=== PATIENT | male | born 1975 | race Caucasian/White ===

== ENCOUNTER 2020-08-26 14:51 | Outpatient (REF) | payer BC, SELFPAY ==
[2020-08-26 17:24] LABS: PSA,Total (Free>4and<10) 0.54 ng/mL (0.00-4.00)
[2020-08-30 17:21] LABS: Testosterone, Total 557 ng/dL (250-1100)
== END 2020-08-26 14:52 | disposition home or self-care (01) ==
LOC: HO.HMGCLDS 14:51
PROVIDERS: PCP Internal Medicine; Visit Provider Urology
DX: E29.1 Testicular hypofunction (principal)
CPT/HCPCS: 36415; 84153; 84403

== ENCOUNTER → 2020-11-26 08:59 | Outpatient (BNVA) | payer BC, SELFPAY | PROVIDERS: PCP Internal Medicine; Visit Provider Nurse Practitioner Gerontology | DX: E11.9 Type 2 diabetes mellitus without complications (principal); I10 Essential (primary) hypertension; E78.5 Hyperlipidemia, unspecified; Z79.4 Long term (current) use of insulin | CPT/HCPCS: 82947 ==

== ENCOUNTER → 2020-12-12 13:15 | Outpatient (BNVA) | payer BC, SELFPAY | PROVIDERS: PCP Internal Medicine; Visit Provider Urology ==

== ENCOUNTER → 2020-12-27 08:06 | Outpatient (BNVA) | payer BC, SELFPAY | PROVIDERS: PCP Internal Medicine; Visit Provider Nurse Practitioner Gerontology | DX: E11.9 Type 2 diabetes mellitus without complications (principal); E78.5 Hyperlipidemia, unspecified; I10 Essential (primary) hypertension; Z79.4 Long term (current) use of insulin | CPT/HCPCS: 82947 ==

== ENCOUNTER 2021-01-29 12:17 | Outpatient (REF) | payer BC, SELFPAY ==
[2021-01-29 13:58] LABS: Hematocrit 44.8 % (42-52); Hemoglobin 14.9 g/dl (14.0-18.0); Mean Corpuscular HGB Conc 33.3 g/dl (31.0-36.0); Mean Corpuscular Hemoglobin 30.7 pg (27.0-33.0); Mean Corpuscular Volume 92.4 fL (80-98); Mean Platelet Volume 10.3 fL (9.4-12.4); Platelet Count 226 X10*3/uL (160-400); Red Blood Count 4.85 X10*6/uL (4.60-5.80); Red Cell Distribution Width 13.2 % (11.0-16.0)
[2021-01-29 14:31] LABS: Creatinine Urine 235.06 mg/dL; Microalbum/Creatinine Ratio Ur 6.3 ug/mg cr
[2021-01-29 14:54] LABS: Alanine Aminotransferase 43 U/L (0-40); Albumin Level 4.7 g/dL (3.5-5.0); Alkaline Phosphatase 90 U/L (39-117); Anion Gap 13 (12-20); Aspartate Amino Transferase 23 U/L (5-37); Bilirubin Total 0.8 mg/dL (0.0-1.0); Blood Urea Nitrogen 14 mg/dL (9-16); Calcium 9.7 mg/dL (8.4-10.2); Carbon Dioxide 29 mmol/L (22-29); Chloride 101 mmol/L (96-108); Cholesterol 138 mg/dL; Estimated Glomerular Filt Rate > 60; Glucose Fasting 97 mg/dL (60-99); HDL Cholesterol 47 mg/dL; LDL Cholesterol Calculated 67 mg/dl; Potassium 4.5 mmol/L (3.3-5.1); Sodium 138 mmol/L (135-145); Total Protein 7.1 g/dL (6.5-8.0); Triglycerides 120 mg/dL
[2021-01-29 14:56] LABS: Alanine Aminotransferase 44 U/L (0-40); Anion Gap 15 (12-20); Aspartate Amino Transferase 25 U/L (5-37); Blood Urea Nitrogen 14 mg/dL (9-16); Calcium 9.4 mg/dL (8.4-10.2); Carbon Dioxide 24 mmol/L (22-29); Chloride 103 mmol/L (96-108); Cholesterol 134 mg/dL; Estimated Glomerular Filt Rate > 60; Glucose Fasting 99 mg/dL (60-99); HDL Cholesterol 45 mg/dL; LDL Cholesterol Calculated 65 mg/dl; Potassium 4.8 mmol/L (3.3-5.1); Sodium 137 mmol/L (135-145); Triglycerides 120 mg/dL
[2021-01-29 15:38] LABS: Prostate Specific Antigen 0.52 ng/mL (<0.05-4.0)
[2021-01-31 06:37] LABS: LDL Cholesterol Direct 69 mg/dL (<100)
[2021-02-02 12:05] LABS: Testosterone, Total 712 ng/dL (250-1100)
== END 2021-01-29 12:18 | disposition home or self-care (01) ==
LOC: HO.HMGCLDS 12:17
PROVIDERS: Urology; Absent Provider Nurse Practitioner Gerontology; PCP Internal Medicine; Visit Provider Internal Medicine
DX: Z00.01 Encounter for general adult medical examination with abnormal findings (principal); Z12.5 Encounter for screening for malignant neoplasm of prostate; E29.1 Testicular hypofunction; E11.9 Type 2 diabetes mellitus without complications; I10 Essential (primary) hypertension; Z79.4 Long term (current) use of insulin
CPT/HCPCS: 36415; 80048; 80053; 80061; 82043; 83721; 84153; 84403; 84450; 84460; 85027

== ENCOUNTER → 2021-05-09 08:01 | Outpatient (BNVA) | payer BC, SELFPAY | PROVIDERS: PCP Internal Medicine; Visit Provider Nurse Practitioner Gerontology | DX: E11.9 Type 2 diabetes mellitus without complications (principal); E78.5 Hyperlipidemia, unspecified; I10 Essential (primary) hypertension; Z79.4 Long term (current) use of insulin | CPT/HCPCS: 82947; 83036 ==

== ENCOUNTER 2021-06-12 10:56 | Outpatient (REF) | payer BC, SELFPAY | END 2021-06-12 10:57 | disposition home or self-care (01) | LOC: HO.LAB 10:56 | PROVIDERS: PCP Internal Medicine; Visit Provider Urology | DX: E29.1 Testicular hypofunction (principal); Z12.5 Encounter for screening for malignant neoplasm of prostate | CPT/HCPCS: 36415; 84153 ==

== ENCOUNTER → 2021-07-11 11:18 | Outpatient (BNVA) | payer BC, SELFPAY | PROVIDERS: PCP Internal Medicine; Visit Provider Urology ==

== ENCOUNTER → 2021-08-15 08:14 | Outpatient (BNVA) | payer BC, SELFPAY | PROVIDERS: PCP Internal Medicine; Visit Provider Nurse Practitioner Gerontology | DX: E11.9 Type 2 diabetes mellitus without complications (principal); I10 Essential (primary) hypertension; Z79.4 Long term (current) use of insulin | CPT/HCPCS: 82947; 83036 ==

== ENCOUNTER 2021-09-03 07:06 | Outpatient (REF) | payer BC, SELFPAY ==
[2021-09-03 12:14] LABS: Creatinine Urine 130.45 mg/dL; Microalbum/Creatinine Ratio Ur 6.1 ug/mg cr
[2021-09-03 12:34] LABS: Alanine Aminotransferase 19 U/L (0-40); Albumin Level 4.4 g/dL (3.5-5.0); Alkaline Phosphatase 94 U/L (39-117); Anion Gap 11 (12-20); Aspartate Amino Transferase 15 U/L (5-37); Bilirubin Total 0.9 mg/dL (0.0-1.0); Blood Urea Nitrogen 13 mg/dL (9-16); Calcium 9.7 mg/dL (8.4-10.2); Carbon Dioxide 30 mmol/L (22-29); Chloride 102 mmol/L (96-108); Cholesterol 128 mg/dL; Estimated Glomerular Filt Rate > 60; Glucose Fasting 123 mg/dL (60-99); HDL Cholesterol 40 mg/dL; LDL Cholesterol Calculated 73 mg/dl; Potassium 4.3 mmol/L (3.3-5.1); Sodium 139 mmol/L (135-145); Total Protein 6.6 g/dL (6.5-8.0); Triglycerides 75 mg/dL
[2021-09-04 08:02] LABS: C Peptide 0.48 ng/mL (0.80-3.85)
[2021-09-04 08:26] LABS: LDL Cholesterol Direct 72 mg/dL (<100)
[2021-09-07 20:42] LABS: Glutamic acid decarboxylase Ab >250 IU/mL (<5)
[2021-09-16 17:58] LABS: Islet Cell Antibody Screen NEGATIVE (NEGATIVE)
== END 2021-09-03 07:07 | disposition home or self-care (01) ==
LOC: HO.HMGCLDS 07:06
PROVIDERS: PCP Internal Medicine; Visit Provider Nurse Practitioner Gerontology
DX: E11.9 Type 2 diabetes mellitus without complications (principal); Z79.4 Long term (current) use of insulin
CPT/HCPCS: 36415; 80053; 80061; 82043; 83721; 84681; 86255; 86341

== ENCOUNTER 2021-12-17 14:27 | Outpatient (REF) | payer BC, SELFPAY ==
--- NOTE | ~2021-12-17 | XR_ITS ---
EXAMINATION: XR HAND, LEFT CLINICAL INFORMATION: Contusion COMPARISON: None TECHNIQUE: Three views of the left hand. FINDINGS: Bone alignment is normal. No acute fracture or dislocation is seen. There is a screw seen in the scaphoid bone and old healed fracture. There is maybe an old ununited ulnar styloid fracture versus accessory ossification center. Joint spaces are normal. Soft tissues are normal. XR/XR hand LT min 3V IMPRESSION: No acute fracture or dislocation.
== END 2021-12-17 14:28 | disposition home or self-care (01) ==
LOC: HO.HMGCX 14:27
PROVIDERS: PCP Internal Medicine; Visit Provider Internal Medicine
DX: S60.222A Contusion of left hand, initial encounter (principal); X58.XXXA Exposure to other specified factors, initial encounter; Y93.9 Activity, unspecified; Y92.9 Unspecified place or not applicable; Y99.8 Other external cause status
CPT/HCPCS: 73130

== ENCOUNTER 2021-12-26 07:08 | Outpatient (REF) | payer BC, SELFPAY ==
[2021-12-26 11:48] LABS: Hematocrit 41.3 % (42.0-52.0); Hemoglobin 13.5 g/dl (14.0-18.0); Mean Corpuscular HGB Conc 32.7 g/dl (31.0-36.0); Mean Corpuscular Hemoglobin 30.4 pg (27.0-33.0); Mean Platelet Volume 10.5 fL (9.4-12.4); Platelet Count 193 X10*3/uL (160-400); Red Blood Count 4.44 X10*6/uL (4.60-5.80); Red Cell Distribution Width 13.4 % (11.0-16.0); White Blood Count 5.2 X10*3/uL (4.8-10.8)
[2021-12-26 12:25] LABS: Prostate Specific Antigen 0.49 ng/mL (<0.05-4.0)
[2022-01-01 14:36] LABS: Testosterone, Total 666 ng/dL (250-1100)
== END 2021-12-26 07:09 | disposition home or self-care (01) ==
LOC: HO.HMGCLDS 07:08
PROVIDERS: PCP Internal Medicine; Visit Provider Urology
DX: Z12.5 Encounter for screening for malignant neoplasm of prostate (principal); E29.1 Testicular hypofunction
CPT/HCPCS: 36415; 84153; 84403; 85027

== ENCOUNTER 2022-06-25 07:06 | Outpatient (REF) | payer BC, SELFPAY ==
[2022-06-25 11:22] LABS: Hematocrit 43.4 % (42.0-52.0)
[2022-06-25 11:52] LABS: Alanine Aminotransferase 44 U/L (0-40); Anion Gap 13 (12-20); Aspartate Amino Transferase 26 U/L (5-37); Blood Urea Nitrogen 15 mg/dL (9-16); Calcium 9.6 mg/dL (8.4-10.2); Carbon Dioxide 32 mmol/L (22-29); Chloride 99 mmol/L (96-108); Cholesterol 185 mg/dL; Estimated Glomerular Filt Rate > 60; Glucose Fasting 139 mg/dL (60-99); HDL Cholesterol 45 mg/dL; LDL Cholesterol Calculated 79 mg/dl; Potassium 3.8 mmol/L (3.3-5.1); Sodium 140 mmol/L (135-145); Triglycerides 305 mg/dL
[2022-06-25 12:07] LABS: Prostate Specific Antigen 0.61 ng/mL (<0.05-4.0); Vitamin D 25-OH Total 5.8 ng/mL (>30)
[2022-07-02 13:34] LABS: Testosterone, Total 599 ng/dL (250-1100)
== END 2022-06-25 07:07 | disposition home or self-care (01) ==
LOC: HO.HMGCLDS 07:06
PROVIDERS: Absent Provider Urology; PCP Internal Medicine; Referring Provider Internal Medicine; Visit Provider Internal Medicine
DX: E10.9 Type 1 diabetes mellitus without complications (principal); E78.5 Hyperlipidemia, unspecified; E29.1 Testicular hypofunction; I10 Essential (primary) hypertension; Z12.5 Encounter for screening for malignant neoplasm of prostate
CPT/HCPCS: 36415; 80048; 80061; 82306; 84153; 84403; 84450; 84460; 85014

== ENCOUNTER → 2022-07-10 13:54 | Outpatient (BNVA) | payer BC, SELFPAY | PROVIDERS: PCP Internal Medicine; Visit Provider Urology | DX: Z13.89 Encounter for screening for other disorder (principal) ==

== ENCOUNTER 2022-07-14 07:07 | Outpatient (REF) | payer BC, SELFPAY ==
[2022-07-14 12:12] LABS: Estimated Average Glucose 131 mg/dL; Hemoglobin A1c % 6.2 %
== END 2022-07-14 07:08 | disposition home or self-care (01) ==
LOC: HO.HMGCLDS 07:07
PROVIDERS: PCP Internal Medicine; Visit Provider Internal Medicine Endocrinology, Diabetes & Metabolism
DX: E10.9 Type 1 diabetes mellitus without complications (principal)
CPT/HCPCS: 36415; 83036

== ENCOUNTER → 2022-07-15 14:47 | Outpatient (BNVA) | payer BC, SELFPAY | PROVIDERS: PCP Internal Medicine; Visit Provider Internal Medicine Endocrinology, Diabetes & Metabolism | DX: E10.9 Type 1 diabetes mellitus without complications (principal); Z79.4 Long term (current) use of insulin | CPT/HCPCS: 82947 ==

== ENCOUNTER → 2022-10-06 13:51 | Outpatient (BNVA) | payer BC, SELFPAY | PROVIDERS: PCP Internal Medicine; Visit Provider Urology | DX: Z13.89 Encounter for screening for other disorder (principal) ==

== ENCOUNTER → 2022-10-21 09:29 | Outpatient (BNVA) | payer BC, SELFPAY | PROVIDERS: PCP Internal Medicine; Visit Provider Registered Nurse Diabetes Educator ==

== ENCOUNTER → 2022-12-02 12:32 | Outpatient (BNVA) | payer BC, SELFPAY | PROVIDERS: PCP Internal Medicine; Visit Provider Registered Nurse Diabetes Educator ==

== ENCOUNTER 2023-01-21 07:29 | Outpatient (REF) | payer BC, SELFPAY ==
[2023-01-21 11:32] LABS: Hematocrit 39.6 % (42.0-52.0); Mean Corpuscular HGB Conc 32.8 g/dl (31.0-36.0); Mean Corpuscular Hemoglobin 31.7 pg (27.0-33.0); Mean Corpuscular Volume 96.6 fL (80.0-98.0); Mean Platelet Volume 10.5 fL (9.4-12.4); Platelet Count 196 X10*3/uL (160-400); Red Cell Distribution Width 13.9 % (11.0-16.0); White Blood Count 5.1 X10*3/uL (4.8-10.8)
[2023-01-21 12:05] LABS: Prostate Specific Antigen 0.57 ng/mL (<0.05-4.0)
[2023-01-25 22:24] LABS: Testosterone, Total 704 ng/dL (250-1100)
== END 2023-01-21 07:30 | disposition home or self-care (01) ==
LOC: HO.HMGCLDS 07:29
PROVIDERS: PCP Internal Medicine; Visit Provider Urology
DX: Z12.5 Encounter for screening for malignant neoplasm of prostate (principal); E29.1 Testicular hypofunction
CPT/HCPCS: 36415; 84153; 84403; 85027

== ENCOUNTER 2023-02-03 08:58 | Outpatient (AMB) | payer BC, SELFPAY ==
--- NOTE | 2023-02-03 09:15 | MHC.OFFVIS ---
Intake Intake Visit Reasons: 6M PSA/CBC/Testo(set) Intake Note: Patient is present for Follow Up LABS Urology Med: Tadalafil, Testosterone Antibiotic Allergy: None Blood Thinner: None Pharmacy: [facility] Allergies No Known Allergies [No Known Allergies*] Allergy (Verified 02/03/23 09:44) HPI HPI Comments History of Present Illness Details Jacek is a pleasant male.? He is a patient of Dr. Dyer.? He is seen for the following urologic conditions - hypogonadism - lower urinary tract symptoms - erectile dysfunction Stable testosterone levels - T 704 Continue with current therapy Refill provided Jacek has had issues with insurance coverage for testosterone He has been on testosterone since soon after his diabetes diagnosis in 2017 The original diagnostic laboratories are no longer available His symptoms of lack of energy, decreased muscle mass and decreased libido all respond to testosterone therapy It will be expected that he will remain on testosterone for the foreseeable future Good response to low-dose daily tadalafil for erectile issues Hypogonadism Longstanding - naltrexone use Treated with AndroGel - 4 pumps per day Laboratories - 01/25 T 712, 12/26 T 650 P 0.5, 06/29 T 600 P 0.6 H 43, 01/27 T 700 P 0.6 Comorbidities include Type 1 diabetes with insulin use, dyslipidemia Therapeutic plan - continue to follow with labs every 6 months Erectile dysfunction Low-dose tadalafil daily with good response Lower urinary tract symptoms Weakness of stream Had been placed on Flomax? [facility] Medical History Dyslipidemia History of cholelithiasis History of kidney stones History of opioid abuse HTN (hypertension) Type 1 diabetes Vitamin D deficiency Surgical History History of laparoscopic cholecystectomy History of surgery on wrist Family History Father Coronary artery disease Son Type 1 diabetes Mother No problems noted. Social History Household Members: Spouse and Children Housing: House Alcohol intake: former Patient Tobacco Use Status: Former Tobacco user e-Cigarette/Vaping Use: Never Used Substance Use Type: Marijuana Current occupational status: employed Cognitive needs: No Hearing needs: No Vision needs: Yes Review of Systems Const Denies chills and Denies fever(s) Card Reports no additional complaints and Denies syncope Resp Denies cough GI Denies abdominal pain and Denies heartburn Reports as per HPI and Denies change in libido Neuro Denies syncope Psych Denies change in libido Endo Denies change in libido Physical Exam Const General: cooperative, healthy appearing, comfortable and no acute distress Orientation/consciousness: patient oriented x3 HEENT Face and sinus: Yes normal facial exam Mouth: moist mucous membranes Neck Neck: Yes normal visual inspection, Yes full ROM and Yes trachea midline Chest Chest palpation & inspection: normal inspection of the chest Resp Effort & Inspection: normal respiratory effort, able to speak in complete sentences and no respiratory distress GI Inspection: Yes normal to inspection Back/Spine/Pelvis Cervical Spine: normal cervical lordosis Thoracic/Lumbar Spine: thoracic and lumbar spine normal to inspection Skin General skin exam: no rashes or lesions noted Neuro General: patient oriented x3, gait normal, tone normal and moves all extremities Extrem General: Yes normal to inspection and Yes capillary refill normal Assessment & Plan Assessment & Plan (1) Erectile dysfunction due to diabetes mellitus: Code(s): E11.69 - Type 2 diabetes mellitus with other specified complication; N52.1 - Erectile dysfunction due to diseases classified elsewhere (2) Hypogonadism in male: Code(s): E29.1 - Testicular hypofunction Plan Six month follow-up Orders: Orders Prostate Specific Antigen 6 Months E29.1 - Testicular hypofunction Testosterone, Total 6 Months E29.1 - Testicular hypofunction Complete Blood Count no Diff 6 Months E29.1 - Testicular hypofunction Patient Instructions: Imaging studies, laboratory and physical exam results were discussed and reviewed in detail. No major barriers to patient understanding were identified. An opportunity to ask questions regarding the treatment plan was provided. All questions were answered. The patient expressed understanding and agreement with the above treatment plan. The patient is aware they should contact our office by phone for worsening of their current condition or the appearance of new urologic symptoms. Compliance is encouraged with any medications and followup testing that is ordered. It is a privilege to participate in the urologic care of your patient. If you have any questions or concerns regarding treatment for the above conditions, or other urologic issues, please do not hesitate to contact me. The office telephone contact is [phone]. This note is constructed using voice recognition software. While every effort has been made to ensure accuracy hearings reporter errors may have been included. Yours sincerely, Dr Hilton Mattson MD, [facility] - Urology Providers of Expert, Compassionate Care for the Genitourinary System Coding Level of Care Code Est Pt Level 3 (29443) Diagnoses Erectile dysfunction due to diabetes mellitus E11.69; N52.1 Hypogonadism in male E29.1
== END 2023-02-03 10:06 | disposition home or self-care (01) ==
PROVIDERS: PCP Internal Medicine; Visit Provider Urology
DX: E11.69 Type 2 diabetes mellitus with other specified complication (principal); N52.1 Erectile dysfunction due to diseases classified elsewhere; E29.1 Testicular hypofunction
CPT/HCPCS: 99213

== ENCOUNTER → 2023-02-03 08:58 | Outpatient (BNVA) | payer BC, SELFPAY | PROVIDERS: Visit Provider Urology ==

== ENCOUNTER 2023-07-09 11:46 | Outpatient (AMB) | payer BC, SELFPAY ==
--- NOTE | 2023-07-09 11:50 | MHC.PC.OV ---
Vital Signs 07/09/23 11:55 Height 5 ft 9 in Weight 192 lb BMI 28.4 BP 140/70 H Blood Pressure Location Lt brachial Position Sitting Pulse 93 Pulse Source Pulse Oximeter Pulse Oximetry (%) 97 Oxygen Delivery Method Room Air Intake Visit Reasons: Follow up also out of multiple prescriptions Intake Note: Pt is here today need refills on some rx's: also Rt hand pain ?carpal tunnel Allergies No Known Allergies [No Known Allergies*] Allergy (Verified 07/09/23 12:00) Medication List - Last Reconciled 07/09/23 by Kyara Dyer MD atorvastatin 20 mg PO DAILY blood sugar diagnostic (AethonTouch Verio test strips) Three times a day blood-glucose meter (AethonTouch Verio Meter) 3x/day blood-glucose meter,continuous (DexMettl G6 Mimeograph Operator) check blood sugar TID ac blood-glucose sensor (ZeroFOX G6 Sensor device) As directed blood-glucose transmitter (Dexcom G6 Transmitter device) As directed buprenorphine-naloxone 8-2 mg 20 mg sublingual DAILY glucagon 3 mg/actuation (Baqsimi) 3 mg intranasal ONCE insulin glargine (Lantus Solostar U-100 Insulin) 40 units (0.4 mL) subcut BID insulin lispro (Humalog KwikPen (U-100) Insulin) 18-20 units before meals subcutaneously 3 times a day; subcutaneously 3 times a day; insulin lispro (Humalog U-100 Insulin) 7 units (0.07 mL) subcut TID insulin pump cart,auto,BT-cntr (Omnipod 5 G6 Intro Kit (Gen 5) subcutaneous cartridge with controller) As directed change pod every 72 hours insulin pump cart,automated,BT (Omnipod 5 G6 Pods (Gen 5) subcutaneous cartridge) As directed change pot every 72 hours lisinopril 20 mg PO DAILY pen needle, diabetic (Comfort EZ Pen Woodruff) 4x daily tadalafil 5 mg PO DAILY 90 days testosterone 4 pumps transdermal DAILY 28 days Tobacco use date assessed: 07/09/23 Dental Screening Dental Screen Date: 07/09/23 Did you have a dental visit in the last 12 months?: Yes Was dental information given to patient?: Patient has dentist HPI Follow up also out of multiple prescriptions HPI Details 47-year-old male with type 1 diabetes mellitus currently followed by endocrine clinic, has hypogonadism currently being followed by Urology, here today for follow-up on his hypertension hyperlipidemia. States that he ran out of his medications several weeks ago. Denies any complaints of headache, chest pain, shortness of breath or lightheadedness. He however complains of pain and swelling over thenar eminence of right hand, with difficulty making a fist or grasping things with his right hand. This has been present now for the last several days and not much relief afforded with taking Tylenol or ibuprofen. No history of trauma or strenuous exertion or heavy lifting with right hand. [facility] Medical History (Updated 07/09/23 @ 12:11 by Kyara Dyer MD) Right hand tendonitis Vitamin D deficiency Type 1 diabetes HTN (hypertension) History of opioid abuse History of kidney stones History of cholelithiasis Dyslipidemia Surgical History History of surgery on wrist History of laparoscopic cholecystectomy Family History Father Coronary artery disease Son Type 1 diabetes Mother No problems noted. Social History Household Members: Spouse and Children Housing: House Alcohol intake: former Patient Tobacco Use Status: Former Tobacco user e-Cigarette/Vaping Use: Never Used Substance Use Type: Marijuana Current occupational status: employed Cognitive needs: No Hearing needs: No Vision needs: Yes Questionnaire PHQ-9 Over the last 2 weeks, how often have you been bothered by any of the following problems? 1. Little interest or pleasure in doing things: not at all 2. Feeling down, depressed, or hopeless: not at all 3. Trouble falling or staying asleep, or sleeping too much: not at all 4. Feeling tired or having little energy: not at all 5. Poor appetite or overeating: not at all 6. Feeling bad about yourself - or that you are a failure or have let yourself or your family down: not at all 7. Trouble concentrating on things, such as reading the newspaper or watching television: not at all 8. Moving or speaking so slowly that other people could have noticed. Or the opposite - being so fidgety or restless that you have been moving around a lot more than usual: not at all 9. Thoughts that you would be better off or of hurting yourself in some way: not at all Total score: 0 Depression Screening Interpretation: Negative Depression Screening Done: Yes 72109 - PHQ-9 Billing: Yes Source: Developed by Drs. Nasim Pardo, Apryl Burks, Juan Antonio Daniel and colleagues, with an educational marshall from [facility]. Thrive Questionnaire Date Thrive assessed: 07/09/23 I am a: Patient What is your living situation today?: I have a steady place to live Within the past 12 months, did the food you bought not last and you didn't have the money to get more?: Never true Within the past 12 months, did you worry whether your food would run out before you got money to buy more?: Never true Do you have trouble paying for medicines?: No Do you have trouble getting transportation to medical appointments?: No Do you have trouble paying your heating and electricity bill?: No Do you have trouble taking care of your child, family member or friend?: No Do you have trouble with day-to-day activities such as bathing, preparing meals, shopping, managing finances, etc.?: No Are you currently unemployed and looking for a job?: No Are you interested in more education?: No THRIVE Score: 0 AUDIT C Alcohol Use Questionnaire (AUDIT-C) 1. How often do you have a drink containing alcohol?: Never Total Score: 0 REYNA-7 AMB Questionnaire REYNA-7 Date REYNA - 7 assessed: 07/09/23 Feeling nervous, anxious, or on edge: 0 = Not at all Not being able to stop or control worryin = Not at all Worrying too much about different things: 0 = Not at all Trouble relaxin = Not at all Being so restless that it is hard to sit still: 0 = Not at all Becoming easily annoyed or irritable: 0 = Not at all Feeling afraid as if something awful might happen: 0 = Not at all Total REYNA-7 score (0-4 normal; 5-9 mild; 10-14 moderate; 15-21 severe): 0 Source: Developed by Drs. Nasim Pardo, Apryl Burks, Juan Antonio Daniel and colleagues, with an educational marshall from [facility]. REYNA-7 Assessment Billing REYNA-7 Assessment Tool: REYNA-7 Assessment 89036 Review of Systems Const Denies body aches, Denies fatigue, Denies fever(s), Denies headache(s) and Denies weakness Eyes Denies change in vision ENT Reports Normal hearing present, Denies dizziness, Denies headache(s), Denies nasal congestion, Denies nasal discharge and Denies sore throat Card Denies chest pain, Denies lightheadedness, Denies palpitations and Denies dyspnea Resp Denies cough and Denies dyspnea GI Denies abdominal pain, Denies change in bowel habits and Denies heartburn Denies dysuria, Denies urinary frequency and Denies urinary urgency Musc Denies back pain Skin/Breast Denies lesions and Denies rash Neuro Reports Normal hearing present, Denies Abnormal speech present, Denies dizziness, Denies headache(s) and Denies weakness Endo Denies fatigue, Denies polydipsia, Denies polyuria and Denies palpitations Physical exam (Primary Care) Vital Signs: Last Vital Signs Pulse 93 07/09/23 11:55 BP 140/70 H 07/09/23 11:55 Pulse Ox 97 07/09/23 11:55 Oxygen Delivery Method Room Air 07/09/23 11:55 BMI result Body Mass Index 28.4 Tobacco/Smoking Status: Tobacco use Status Tobacco use date assessed 07/09/23 07/09/23 11:57 Patient Tobacco Use Status Former Tobacco user 07/09/23 11:57 e-Cigarette/Vaping Use Never Used 07/09/23 11:57 PHQ-9: PHQ-9 Score PHQ-9: Total score 0 07/11/23 22:26 Depression Screening Interpretation: Negative Thrive Assessment: Date of Thrive Assessment Date Thrive assessed 07/09/23 07/09/23 11:59 Const Other: Alert and oriented x3, no acute cardiorespiratory distress noted ambulatory with normal gait HENMT Head: Yes normocephalic Ears: external ears normal General nose exam: Normal external nose present Eyes General: appearance normal, both eyes and all related structures Neck Neck: Yes full ROM, Yes no lymphadenopathy, Yes no meningeal signs and Yes supple Thyroid: Thyroid normal Resp Auscultation: clear to auscultation bilaterally Cardio Other: S1-S2 present regular rate and rhythm GI Palpation (GI): Soft to palpation, nontender, no guarding and no masses General: Yes no CVA tenderness Back/Spine/Pelvis Back: no CVA tenderness and No back tenderness Skin General skin exam: no rashes or lesions noted Neuro General: gait normal, tone normal, moves all extremities, Normal light touch and pain sensation, no meningeal signs, no focal motor deficits and CN's II-XI intact bilaterally Cranial nerves: Yes Normal hearing present Speech: No Abnormal speech present Extrem Other: Mild swelling and redness over thenar eminence on right, tender to palpation, unable to make a tight fist due to pain General: Yes full ROM, Yes normal exam except as noted, Yes no joint enlargement, Yes no clubbing, cyanosis or edema and Yes normal gait Psych Appearance: grossly normal Mental Status: mental status grossly normal Speech and movement: Normal speech and movement present Attitude: cooperative Assessment and Plan Assessment & Plan (1) HTN (hypertension): Code(s): I10 - Essential (primary) hypertension Qualifiers: Hypertension type: essential hypertension Qualified Code(s): I10 - Essential (primary) hypertension Plan: Blood pressure goal is less than 130/80. Advised better compliant to taking medication, continued on lisinopril 20 mg daily. Reinforced importance of following a low sodium diet, getting regular exercise, and lowering stress levels. (2) Dyslipidemia: Code(s): E78.5 - Hyperlipidemia, unspecified Plan: Continue atorvastatin 20 mg daily, get fasting labs done (3) Right hand tendonitis: Code(s): M77.8 - Other enthesopathies, not elsewhere classified Plan: Prescription sent for prednisone tapering dose, to take as directed. Advised to take it with milk or food, return to clinic if no improvement of symptoms seen Medications: New prednisone see taper instructions take 40 mg for on days 1 and 2, 30 mg on days 3 and 4, 20 mg on days 5 and 6, and 1 tablet or 10 mg on days 7 and 8. Take it with food or milk 10 mg PO DIRECTED 20 tabs 0RF Refilled atorvastatin Schedule next PCP visit for future refills 20 mg PO DAILY 90 tabs 1RF Coding Level of Care Code Est Pt Level 4 (19276) Diagnoses Essential hypertension I10 Hypertension type: essential hypertension Dyslipidemia E78.5 Right hand tendonitis M77.8 Additional Codes REYNA-7 Assessment Billing - REYNA-7 Assessment Tool: REYNA-7 Assessment 85282 ([id number])
[2023-07-09 11:55] VITALS: BP 140/70; PULSE 93; O2SAT 97; BMI 28.4
== END 2023-07-09 12:30 | disposition home or self-care (01) ==
PROVIDERS: PCP Internal Medicine; Visit Provider Internal Medicine
DX: I10 Essential (primary) hypertension (principal); E78.5 Hyperlipidemia, unspecified; M77.8 Other enthesopathies, not elsewhere classified
CPT/HCPCS: 99214

== ENCOUNTER 2023-07-10 10:03 | Outpatient (REF) | payer BC, SELFPAY ==
[2023-07-10 11:56] LABS: Hematocrit 40.4 % (42.0-52.0); Hemoglobin 13.7 g/dl (14.0-18.0); Mean Corpuscular HGB Conc 33.9 g/dl (31.0-36.0); Mean Corpuscular Hemoglobin 31.7 pg (27.0-33.0); Mean Corpuscular Volume 93.5 fL (80.0-98.0); Mean Platelet Volume 10.2 fL (9.4-12.4); Platelet Count 236 X10*3/uL (160-400); Red Blood Count 4.32 X10*6/uL (4.60-5.80); Red Cell Distribution Width 12.7 % (11.0-16.0); White Blood Count 8.3 X10*3/uL (4.8-10.8)
[2023-07-10 12:27] LABS: Alanine Aminotransferase 52 U/L (0-40); Anion Gap 17 (12-20); Aspartate Amino Transferase 28 U/L (5-37); Blood Urea Nitrogen 14 mg/dL (9-16); Calcium 9.5 mg/dL (8.4-10.2); Carbon Dioxide 25 mmol/L (22-29); Chloride 102 mmol/L (96-108); Cholesterol 190 mg/dL (<200); Estimated Glomerular Filt Rate > 60; Glucose Fasting 151 mg/dL (60-99); HDL Cholesterol 69 mg/dL (>40); LDL Cholesterol Calculated 53 mg/dL (<100); Potassium 3.8 mmol/L (3.3-5.1); Sodium 140 mmol/L (135-145); Triglycerides 343 mg/dL (<150)
[2023-07-10 12:33] LABS: Microalbum/Creatinine Ratio Ur 19.3 ug/mg cr (<30)
[2023-07-10 12:46] LABS: Prostate Specific Antigen 0.52 ng/mL (<0.05-4.0)
[2023-07-14 22:58] LABS: Testosterone, Total 864 ng/dL (250-1100)
== END 2023-07-10 10:04 | disposition home or self-care (01) ==
LOC: HO.HMGCLDS 10:03
PROVIDERS: PCP Internal Medicine; Referring Provider Urology; Visit Provider Internal Medicine
DX: Z12.5 Encounter for screening for malignant neoplasm of prostate (principal); E29.1 Testicular hypofunction; E10.9 Type 1 diabetes mellitus without complications; I10 Essential (primary) hypertension
CPT/HCPCS: 36415; 80048; 80061; 82043; 82570; 84153; 84403; 84450; 84460; 85027

== ENCOUNTER 2023-07-27 10:26 | Outpatient (AMB) | payer BC, SELFPAY ==
[2023-07-27 10:31] VITALS: BP 122/70; PULSE 86; TEMP 36.2; O2SAT 96; BMI 27.2
--- NOTE | 2023-07-27 10:31 | MHC.OFFWIV ---
Intake Vital Signs 07/27/23 10:31 Height 5 ft 9 in Weight 184 lb BMI 27.2 BP 122/70 Blood Pressure Location Lt brachial Position Sitting Pulse 86 Pulse Source Pulse Oximeter Temp 97.2 F Temp Source Temporal Artery Scan Pulse Oximetry (%) 96 Oxygen Delivery Method Room Air Intake Visit Reasons: EP fever, congestion, [phone] Intake Note: pt is here today for fever congestion cough started yesterday Patient Tobacco Use Status: Former Tobacco user Allergies No Known Allergies [No Known Allergies*] Allergy (Verified 07/27/23 11:18) Medication List - Last Reconciled 07/27/23 by Otto Meza, MEDICAL HEALTH RESEARCHER albuterol sulfate 90 mcg/actuation 2 puffs inhalation Q6H PRN atorvastatin 20 mg PO DAILY benzonatate 100 mg PO BID PRN blood sugar diagnostic (Liquid Xuch Verio test strips) Three times a day blood-glucose meter (Liquid Xuch Verio Meter) 3x/day blood-glucose meter,continuous ([employer] Consumer G6 Search Engine Optimization Strategist) check blood sugar TID ac blood-glucose sensor ([employer] Consumer G6 Sensor device) As directed blood-glucose transmitter ([employer] Consumer G6 Transmitter device) As directed buprenorphine-naloxone 8-2 mg 20 mg sublingual DAILY glucagon 3 mg/actuation (Baqsimi) 3 mg intranasal ONCE insulin glargine (Lantus Solostar U-100 Insulin) 40 units (0.4 mL) subcut BID insulin lispro (Humalog KwikPen (U-100) Insulin) 18-20 units before meals subcutaneously 3 times a day; subcutaneously 3 times a day; insulin lispro (Humalog U-100 Insulin) 7 units (0.07 mL) subcut TID insulin pump cart,auto,BT-cntr (Omnipod 5 G6 Intro Kit (Gen 5) subcutaneous cartridge with controller) As directed change pod every 72 hours insulin pump cart,automated,BT (Omnipod 5 G6 Pods (Gen 5) subcutaneous cartridge) As directed change pot every 72 hours lisinopril 20 mg PO DAILY pen needle, diabetic (Comfort EZ Pen Hindman) 4x daily prednisone 40 mg (2 x 20 mg) PO DAILY tadalafil 5 mg PO DAILY 90 days testosterone 4 pumps transdermal DAILY 28 days Do you need a note to return to daycare/school/sports/work: Yes HPI HPI Comments History of Present Illness Details Patient is a 47-year-old male in today for a sick visit. Patient states that the past 2 days he has developed symptoms of sore throat, cough, headache, fever, chest tightness. He has a past medical history significant for type 1 diabetes, reactive airways, hypertension. Patient denies chest pain, dizziness, numbness, shortness of breath, nausea, vomiting, diarrhea. [facility] Medical History (Updated 07/27/23 @ 11:21 by JUAN A Ackerman) Right hand tendonitis Vitamin D deficiency Type 1 diabetes HTN (hypertension) History of opioid abuse History of kidney stones History of cholelithiasis Dyslipidemia Surgical History History of surgery on wrist History of laparoscopic cholecystectomy Family History Father Coronary artery disease Son Type 1 diabetes Mother No problems noted. Social History Household Members: Spouse and Children Housing: House Alcohol intake: former Patient Tobacco Use Status: Former Tobacco user e-Cigarette/Vaping Use: Never Used Substance Use Type: Marijuana Current occupational status: employed Cognitive needs: No Hearing needs: No Vision needs: Yes Review of Systems Const Details: Constitutional : No Weight loss, No Fever, Admits Chills, No Fatigue, Admits Malaise ENT/Mouth : Admits sore throat, No Rhinorrhea Eyes: No Eye Pain, No Swelling, No Redness Cardiovascular : No Chest Pain, No SOB, No Dyspnea on Exertion, No Orthopnea, No Edema, No Palpitations Respiratory : Admits Cough, Admits Sputum, Admits Wheezing Gastrointestinal : No Nausea, No Vomiting, No Diarrhea, No Constipation, No abdominal Pain, No Hematochezia, No Melena Neuro : No Weakness, No Numbness, No Dizziness, No Headache All other systems reviewed and are negative Physical Exam Vital Signs: Last Vital Signs Temp 97.2 F 07/27/23 10:31 Pulse 86 07/27/23 10:31 BP 122/70 07/27/23 10:31 Pulse Ox 96 07/27/23 10:31 Oxygen Delivery Method Room Air 07/27/23 10:31 BMI result Body Mass Index 27.2 Const Other: Appearance: Alert.? Oriented X3.? No acute distress.? Head: Normocephalic, atraumatic, Eyes: Pupils equal, round and reactive to light.?No photophobia. Red reflex present. ENT: Pharynx erythema and cobblestone. No exudate. TM intact with effusion bilaterally. ? Neck: Normal inspection.? Neck supple.?Full ROM CVS: Normal heart rate and rhythm.? Pulses normal.? Respiratory: No respiratory distress.? Bilateral wheeze of upper lobes.? Neuro: Oriented X 3.? No motor deficit.? No sensory deficit. CN 2-12 intact Assessment & Plan Assessment & Plan (1) Upper respiratory infection: Comment: Will obtain upper respiratory swab. Will give patient prednisone, benzonatate, albuterol to be taken as directed. Patient has been educated on the side effects of these medications. Patient has been educated on worsening signs and symptoms and when to report back to the walk-in or when to present to the emergency department. Code(s): J06.9 - Acute upper respiratory infection, unspecified Qualifiers: URI type: unspecified URI Qualified Code(s): J06.9 - Acute upper respiratory infection, unspecified Plan: Take your medications as prescribed. If you were prescribed antibiotics today, it is important that you take your medication to their entirety, do not skip any doses, do not finish them early. Follow-up with your primary care provider this week. Return to the emergency department with new or worsening symptoms. Such as fevers, chills, chest pain, shortness of breath, nausea, vomiting, dizziness, headache, vision changes, lethargy In case of emergency call 911 Plan Follow-up with PCP. Orders: Orders SARS-CoV2/FLU/RSV Today J06.9 - Acute upper respiratory infection, unspecified Medications: New albuterol sulfate 90 mcg/actuation 2 puffs inhalation Q6H PRN 8.5 grams 0RF shortness of breath or wheezing benzonatate 100 mg PO BID PRN 30 caps 0RF cough prednisone 40 mg (2 x 20 mg) PO DAILY 10 tabs 0RF Coding Level of Care Code Est Pt Level 3 (64511) Diagnoses Upper respiratory tract infection, unspecified type J06.9 URI type: unspecified URI Time Spent (min) 21
== END 2023-07-27 12:14 | disposition home or self-care (01) ==
PROVIDERS: PCP Internal Medicine; Visit Provider Nurse Practitioner Primary Care
DX: J06.9 Acute upper respiratory infection, unspecified (principal)
CPT/HCPCS: 99213

== ENCOUNTER 2023-07-27 14:20 | Outpatient (REF) | payer BC, SELFPAY ==
[2023-07-27 15:45] LABS: Influenza A PCR NEGATIVE (Negative); Influenza B PCR NEGATIVE (Negative); Resp Syncy Virus RNA Qual PCR POSITIVE (Negative); SARS COV2 PCR INHOUSE NEGATIVE (Negative)
== END 2023-07-27 14:21 | disposition home or self-care (01) ==
LOC: HO.HMGCLNP 14:20
PROVIDERS: Visit Provider Nurse Practitioner Primary Care
DX: Z11.52 Encounter for screening for COVID-19 (principal); Z20.822 Contact with and (suspected) exposure to COVID-19; J06.9 Acute upper respiratory infection, unspecified
CPT/HCPCS: 0241U

== ENCOUNTER 2023-08-05 07:52 | Outpatient (AMB) | payer BC, SELFPAY ==
--- NOTE | 2023-08-05 07:53 | A.OFFVIS_ITS ---
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 He is a patient of Dr. Dyer.? He is seen for the following urologic conditions - hypogonadism - lower urinary tract symptoms - erectile dysfunction Telemedicine Evaluation 15 min Consultation [email or web address]angel[employer] Video attempted Testosterone slightly elevated Cut back gel from 4 pumps per day to 3 pumps per day Refill provided Jacek has had issues with insurance coverage for testosterone He has been on testosterone since soon after his diabetes diagnosis in 2017 The original diagnostic laboratories are no longer available His symptoms of lack of energy, decreased muscle mass and decreased libido all respond to testosterone therapy It will be expected that he will remain on testosterone for the foreseeable future Good response to low-dose daily tadalafil for erectile issues Hypogonadism Longstanding - naltrexone use Treated with AndroGel - 4 pumps per day Laboratories - 01/25 T 712, 12/26 T 650 P 0.5, 06/29 T 6 00 P 0.6 H 43, 01/27 T 700 P 0.6, 07/31 T 865 P 0.5 Comorbidities include Type 1 diabetes with insulin use, dyslipidemia Therapeutic plan - continue to follow with labs every 6 m [facility] Erectile dysfunction Low-dose tadalafil daily with good response Lower urinary tract symptoms Weakness of stream Had been placed on Flomax? [facility] Medical History Right hand tendonitis Vitamin D deficiency Type 1 diabetes HTN (hypertension) History of opioid abuse History of kidney stones History of cholelithiasis Dyslipidemia Surgical History History of surgery on wrist History of laparoscopic cholecystectomy Family History Father Coronary artery disease Son Type 1 diabetes Mother No problems noted. Social History Household Members: Spouse and Children Housing: House Alcohol intake: former Patient Tobacco Use Status: Former Tobacco user e-Cigarette/Vaping Use: Never Used Substance Use Type: Marijuana Current occupational status: employed Cognitive needs: No Hearing needs: No Vision needs: Yes Review of Systems Const All systems reviewed & are unremarkable except as noted in HPI and below Reports no additional complaints Resp Reports no additional complaints GI Reports no additional complaints Reports as per HPI Musc Reports no additional complaints Physical Exam Telemedicine evaluation Appropriate responses Regular breathing rate and rhythm HEENT Head: Yes normal to inspection Ears: hearing grossly normal bilaterally Eyes General: appearance normal, both eyes and all related structures Neck Neck: Yes normal visual inspection Chest Chest palpation & inspection: normal inspection of the chest Resp Effort & Inspection: normal respiratory effort and able to speak in complete sentences Assessment & Plan Assessment & Plan (1) Erectile dysfunction due to diabetes mellitus: Code(s): E11.69 - Type 2 diabetes mellitus with other specified complication; N52.1 - Erectile dysfunction due to diseases classified elsewhere (2) Hypogonadism in male: Code(s): E29.1 - Testicular hypofunction Plan Six-month follow-up lab work office Orders: Orders Testosterone, Total 6 Months E29.1 - Testicular hypofunction Prostate Specific Antigen 6 Months E29.1 - Testicular hypofunction Complete Blood Count no Diff 6 Months E29.1 - Testicular hypofunction Medications: Changed From testosterone apply 2 pumps to each arm daily and rub in till dry 4 pumps transdermal DAILY 28 days 150 grams 5RF E29.1 - Testicular hypofunction To testosterone apply 3 pumps total each day rub in till dry 4 pumps transdermal DAILY 150 grams 5RF 28 days E29.1 - Testicular hypofunction Refilled tadalafil dialy 5 mg PO DAILY 90 tabs 1RF Low T 90 days E29.1 - Testicular hypofunction Patient Instructions: Imaging studies, laboratory and physical exam results were discussed and reviewed in detail. No major barriers to patient understanding were identified. An opportunity to ask questions regarding the treatment plan was provided. All questions were answered. The patient expressed understanding and agreement with the above treatment plan. The patient is aware they should contact our office by phone for worsening of their current condition or the appearance of new urologic symptoms. Compliance is encouraged with any medications and followup testing that is ordered. It is a privilege to participate in the urologic care of your patient. If you have any questions or concerns regarding treatment for the above conditions, or other urologic issues, please do not hesitate to contact me. The office telephone contact is [phone]. This note is constructed using voice recognition software. While every effort has been made to ensure accuracy silver miner blasting errors may have been included. Yours sincerely, Dr Hilton Mattson MD, [facility] - Urology Providers of Expert, Compassionate Care for the Genitourinary System Telehealth Telehealth Location of provider rendering services: practice address Location of patient: address on file Patient Identification confirmed using: Name, : Yes Telehealth method: video Patient verbally consented to treatment: Yes Patient verbally consented to billing insurance company: Yes Patient informed of any privacy concerns related to visit: Yes Coding Level of Care Code Tele Est Pt Level 4 (18574) Diagnoses Erectile dysfunction due to diabetes mellitus E11.69; N52.1 Hypogonadism in male E29.1
== END 2023-08-05 09:30 | disposition home or self-care (01) ==
LOC: HO.HUSH 07:53
PROVIDERS: PCP Internal Medicine; Visit Provider Urology
DX: E11.69 Type 2 diabetes mellitus with other specified complication (principal); N52.1 Erectile dysfunction due to diseases classified elsewhere; E29.1 Testicular hypofunction
CPT/HCPCS: 99214

== ENCOUNTER → 2023-08-05 07:52 | Outpatient (BNVA) | payer BC, SELFPAY | PROVIDERS: PCP Internal Medicine; Visit Provider Urology ==

== ENCOUNTER 2023-08-19 09:15 | Outpatient (AMB) | payer BC, SELFPAY ==
--- NOTE | 2023-08-19 09:42 | MHC.OFFVIS ---
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 Patient reports ongoing pain for about 3 month. He has difficulty making a fist or grasping things with his right hand. Patient has not much relief with taking Tylenol or ibuprofen. No hx of Treatment. Denies numbness and tingling. Allergies No Known Allergies [No Known Allergies*] Allergy (Verified 08/19/23 09:44) Medication List - Last Reconciled 08/19/23 by Lynn Hamliton MD albuterol sulfate 90 mcg/actuation 2 puffs inhalation Q6H PRN atorvastatin 20 mg PO DAILY benzonatate 100 mg PO BID PRN blood sugar diagnostic ([employer] Verio test strips) Three times a day blood-glucose meter ([employer] Verio Meter) 3x/day blood-glucose meter,continuous (Dexcom G6 Residential Insurance Inspector) check blood sugar TID ac blood-glucose sensor (Feastie G6 Sensor device) As directed blood-glucose transmitter (Dexcom G6 Transmitter device) As directed buprenorphine-naloxone 8-2 mg 20 mg sublingual DAILY glucagon 3 mg/actuation (Baqsimi) 3 mg intranasal ONCE insulin glargine (Lantus Solostar U-100 Insulin) 40 units (0.4 mL) subcut BID insulin lispro (Humalog KwikPen (U-100) Insulin) 18-20 units before meals subcutaneously 3 times a day; subcutaneously 3 times a day; insulin lispro (Humalog U-100 Insulin) 7 units (0.07 mL) subcut TID insulin pump cart,auto,BT-cntr (Omnipod 5 G6 Intro Kit (Gen 5) subcutaneous cartridge with controller) As directed change pod every 72 hours insulin pump cart,automated,BT (Omnipod 5 G6 Pods (Gen 5) subcutaneous cartridge) As directed change pot every 72 hours lisinopril 20 mg PO DAILY pen needle, diabetic (Comfort EZ Pen Speed) 4x daily tadalafil 5 mg PO DAILY 90 days testosterone 4 pumps transdermal DAILY 28 days HPI HPI Comments History of Present Illness Details 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 No numbness on fingers. No neck pain or elbow pain on right. Not dropping things. Feels swollen. ROS mentions left elbow pain. Family history of RA. Treatment done so far: NSAIDs wrist brace - possibly a thumb spica 2 weeks at least PFSH Medical History (Updated 08/19/23 @ 12:54 by Lynn Hamilton MD) Joint pain Right hand tendonitis Vitamin D deficiency Type 1 diabetes HTN (hypertension) History of opioid abuse History of kidney stones History of cholelithiasis Dyslipidemia Surgical History History of surgery on wrist History of laparoscopic cholecystectomy Family History Father Coronary artery disease Son Type 1 diabetes Mother No problems noted. 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 MSK: Right radial wrist swollen. Tenderness on right 1st CMC joint. No intrinsic hand weakness noted. No atrophy noted. Sabrina test mildly positive right. Carpal compression test negative. Tinel sign negative. Tender olecranon left but not on medial or lateral epicondyle. Strength is 5/5 in all muscle groups tested. No increased tone noted. Neurological: Neurologic examination of the upper and lower extremities was nonfocal with intact sensation, muscle stretch reflexes and without focal motor deficits . Ramon?s negative bilaterally. Gait is non-antalgic without loss of balance. Results Reviewed Results Reviewed: No recent x-rays done. I reviewed records from the following: PCP Assessment & Plan Assessment & Plan (1) De Quervain's tenosynovitis, right: Code(s): M65.4 - Radial styloid tenosynovitis [de Quervain] (2) Joint pain: Code(s): M25.50 - Pain in unspecified joint Qualifiers: Joint pain location: hand Laterality: right Qualified Code(s): M25.541 - Pain in joints of right hand Plan Suspect having right de Quervain tenosynovitis. For this continue thumb spica splint. We could consider injections if not improved. However I am more concerned about multiple joint pain, right hand and left elbow. Family history of RA. We will send patient for right hand/wrist and left elbow x-ray today. We will check lab work: AINSLEY, RF, uric acid and ESR. If any of these are positive for possible inflammatory arthritis, will refer to Rheumatology. Assessment and plan discussed with patient, and patient was agreeable. All questions were answered thoroughly. Lynn Hamilton MD, [facility] Board Certified, [place] [employer] and Rehabilitation (ABPMR) Board Certified, [place] Board [employer] Electrodiagnostic Medicine (ABEM) Orders: Orders XR elbow LT 2V Today M25.50 - Pain in unspecified joint AINSLEY Reflex Titer and Pattern Today M25.50 - Pain in unspecified joint Rheumatoid Factor Today M25.50 - Pain in unspecified joint Erythrocyte Sedimentation Rate Today M25.50 - Pain in unspecified joint Uric Acid Today M25.50 - Pain in unspecified joint XR hand RT min 3V Today M25.50 - Pain in unspecified joint Coding Level of Care Code New Pt Level 4 (38306) Diagnoses De Quervain's tenosynovitis, right M65.4 Arthralgia of right hand M25.541 Joint pain location: hand Laterality: right
== END 2023-08-19 10:20 | disposition home or self-care (01) ==
PROVIDERS: PCP Internal Medicine; Visit Provider Physical Medicine & Rehabilitation
DX: M65.4 Radial styloid tenosynovitis [de Quervain] (principal); M25.541 Pain in joints of right hand
CPT/HCPCS: 99204

== ENCOUNTER 2023-08-19 09:15 | Outpatient (REF) | payer BC, SELFPAY ==
--- NOTE | ~2023-08-19 | XR_ITS ---
EXAMINATION: XR HAND, RIGHT CLINICAL INFORMATION: Pain in unspecified joint. COMPARISON: None available. TECHNIQUE: Three views of the left hand. FINDINGS: Marked degenerative changes in the 1st carpometacarpal joint with joint space narrowing and hypertrophic change. Punctate radiodensity in the superficial soft tissues between the 1st and 2nd metacarpal may represent a foreign body. Curvilinear radiodensities in the soft tissues along the ulnar aspect of the base of the 5th proximal phalanx, possibly representing a foreign body. Correlation with clinical exam and history recommended to determine further management. Moderate degenerative changes and scattered IP and MCP joints. XR/XR elbow LT 2V IMPRESSION: 1. Marked degenerative changes 1st carpometacarpal joint. 2. Punctate radiodensity in the superficial soft tissues between the 1st and 2nd metacarpal may represent a foreign body. Curvilinear radiodensities in the soft tissues along the ulnar aspect of the base of the 5th proximal phalanx, possibly representing a foreign body. Correlation with clinical exam and history recommended to determine further management. Recommend follow-up imaging in 10-14 days if fracture is suspected.
--- NOTE | ~2023-08-19 | XR_ITS ---
EXAMINATION: XR HAND, RIGHT CLINICAL INFORMATION: Pain in unspecified joint. COMPARISON: None available. TECHNIQUE: Three views of the left hand. FINDINGS: Marked degenerative changes in the 1st carpometacarpal joint with joint space narrowing and hypertrophic change. Punctate radiodensity in the superficial soft tissues between the 1st and 2nd metacarpal may represent a foreign body. Curvilinear radiodensities in the soft tissues along the ulnar aspect of the base of the 5th proximal phalanx, possibly representing a foreign body. Correlation with clinical exam and history recommended to determine further management. Moderate degenerative changes and scattered IP and MCP joints. XR/XR hand RT min 3V IMPRESSION: 1. Marked degenerative changes 1st carpometacarpal joint. 2. Punctate radiodensity in the superficial soft tissues between the 1st and 2nd metacarpal may represent a foreign body. Curvilinear radiodensities in the soft tissues along the ulnar aspect of the base of the 5th proximal phalanx, possibly representing a foreign body. Correlation with clinical exam and history recommended to determine further management. Recommend follow-up imaging in 10-14 days if fracture is suspected.
== END 2023-08-19 09:16 | disposition home or self-care (01) ==
LOC: HO.HOSX 09:15
PROVIDERS: PCP Internal Medicine; Visit Provider Physical Medicine & Rehabilitation
DX: M65.4 Radial styloid tenosynovitis [de Quervain] (principal); M25.541 Pain in joints of right hand
CPT/HCPCS: 73070; 73130

== ENCOUNTER 2023-09-29 11:18 | Outpatient (REF) | payer BC, SELFPAY ==
[2023-09-29 14:05] LABS: Uric Acid 6.8 mg/dL (3.4-7.0)
[2023-09-29 14:25] LABS: Rheumatoid Factor < 13.0 IU/mL (<15.0)
[2023-09-29 14:51] LABS: Erythrocyte Sedimentation Rate 2 MM/HR (0-15)
[2023-10-04 12:28] LABS: Anti Nuclear Antibody Screen POSITIVE (NEGATIVE); Anti Nuclear Antibody Titer 1:40 titer
== END 2023-09-29 11:19 | disposition home or self-care (01) ==
LOC: HO.HMGCLDS 11:18
PROVIDERS: Visit Provider Physical Medicine & Rehabilitation
DX: M25.50 Pain in unspecified joint (principal)
CPT/HCPCS: 36415; 84550; 85652; 86038; 86039; 86431

== ENCOUNTER 2023-10-23 19:56 | Emergency (ER) | payer BC, SELFPAY ==
--- NOTE | ~2023-10-23 | CT_ITS ---
EXAMINATION: CT ANGIOGRAM OF THE CHEST WITH AND WITHOUT CONTRAST (CT PULMONARY ANGIOGRAM FOR PE) CLINICAL INFORMATION: Reason for Exam hypotension. hypoxia COMPARISON: None available. TECHNIQUE: Prior to contrast administration, noncontrast localization images were obtained. Subsequently, multidetector volumetric imaging was performed from the thoracic inlet to below the diaphragms following the administration of 65 mL Omnipaque 350 intravenous contrast. No contrast reaction reported Sagittal, coronal, and MIP oblique sagittal reformatted images were obtained on the CT workstation, uploaded to PACS, and reviewed. This CT examination was performed using dose optimization techniques as appropriate, variously including the following: *Automated exposure control *Adjustment of mA and/or kV according to patient size (this includes techniques or standardized protocols for targeted exams where dose is matched to indication/reason for exam; i.e. extremities or head) *Use of iterative reconstruction technique Total exam dose-length product 260 mGy-cm FINDINGS: QUALITY OF STUDY/CONTRAST BOLUS: Satisfactory. PULMONARY ARTERIES: No pulmonary emboli through the segmental pulmonary arteries. Evaluation of the subsegmental arteries, particularly at the lingula limited by respiratory motion. THORACIC AORTA: No aneurysm. LUNG: Central airways patent. Mild diffuse bronchial wall thickening. Clustered tree-in-bud nodularity, involving the dependent left greater than right lower lobes and lingula, most pronounced in the superior segment left lower lobe (series 7, image 204). No confluent consolidation. No more discrete, suspicious nodules or masses. PLEURA: No pleural effusion or pneumothorax. MEDIASTINUM: Normal heart size. No pericardial effusion. No hilar or mediastinal lymphadenopathy. No evidence of septal bowing or right heart strain. CORONARY ARTERY CALCIFICATION: None visualized on this study. CHEST WALL/AXILLA: No axillary or internal mammary lymphadenopathy. OSSEOUS STRUCTURES: No acute or suspicious osseous abnormality. Mild multilevel degenerative thoracic spondylosis. UPPER ABDOMEN: Diffuse hepatic steatosis. Visualized upper abdomen otherwise unremarkable. No reflux of contrast into the hepatic veins to suggest elevated right heart pressures. CT/CT angio chest PE protocol IMPRESSION: 1. No pulmonary emboli through the segmental pulmonary arteries. 2. Mild diffuse bronchial wall thickening with bilateral dependent lung tree-in-bud nodularity, suspicious for multifocal bronchopneumonia and/or aspiration. VTE: negative.
[2023-10-23 20:39] VITALS: BP 84/62; PULSE 63; RESP 16; TEMP 37.3; O2SAT 84; BMI 25.8
--- NOTE | 2023-10-23 20:52 | ECG_ITS ---
Test Reason : BP low Blood Pressure : / mmHG Vent. Rate : 058 BPM Atrial Rate : 058 BPM P-R Int : 150 ms QRS Dur : 074 ms QT Int : 422 ms P-R-T Axes : 031 024 022 degrees QTc Int : 414 ms Sinus bradycardia Otherwise normal ECG No previous ECGs available Referred By: Generic ED Physician Electronically Signed By:KOFFI OWENS MD
[2023-10-23 21:11] LABS: MANUAL DIFF FLAG NO
[2023-10-23 21:13] LABS: Basophils Percent Auto 0.3 % (0-2); Eosinophils Percent Auto 0.3 % (0-4); Hematocrit 38.6 % (42.0-52.0); Hemoglobin 13.5 g/dl (14.0-18.0); Imm Gran Abs Auto 0.04 X10*3/uL (0.00-0.03); Imm Gran Pct Auto 0.3 % (0.0-0.4); Lymphocytes Absolute Auto 1.1 X10*3/uL (1.2-4.9); Lymphocytes Percent Auto 9.2 % (20-40); Mean Corpuscular Hemoglobin 33.4 pg (27.0-33.0); Mean Corpuscular Volume 95.5 fL (80.0-98.0); Mean Platelet Volume 9.9 fL (9.4-12.4); Monocytes Absolute Auto 0.8 X10*3/uL (0.1-1.2); Monocytes Percent Auto 7.2 % (2-11); Neutrophils Absolute Auto 9.5 x10*3/uL (2.0-8.3); Neutrophils Percent Auto 82.7 % (45-73); Platelet Count 227 X10*3/uL (160-400); Red Blood Count 4.04 X10*6/uL (4.60-5.80); Red Cell Distribution Width 12.5 % (11.0-16.0); White Blood Count 11.5 X10*3/uL (4.8-10.8)
[2023-10-23 21:27] LABS: Alanine Aminotransferase 40 U/L (0-40); Albumin Level 4.2 g/dL (3.5-5.0); Alkaline Phosphatase 104 U/L (39-117); Anion Gap 18 (12-20); Aspartate Amino Transferase 25 U/L (5-37); Blood Urea Nitrogen 27 mg/dL (9-16); Calcium 9.4 mg/dL (8.4-10.2); Carbon Dioxide 28 mmol/L (22-29); Chloride 92 mmol/L (96-108); Creatinine Clr Calc Pharmacy 68.9; Estimated Glomerular Filt Rate 58; Ethanol 68 mg/dL; Glucose Random 245 mg/dL (60-115); Potassium 4.9 mmol/L (3.3-5.1); Sodium 133 mmol/L (135-145); Total Protein 6.7 g/dL (6.5-8.0)
[2023-10-23 21:34] LABS: Troponin-I High Sensitivity 5.2 ng/L (<3.5-35.0)
[2023-10-23 21:51] VITALS: BP 106/58; PULSE 62; RESP 16; O2SAT 94
--- NOTE | 2023-10-23 22:15 | ED_ITS ---
HPI - Alcohol General Chief Complaint: ETOH/Substance Use Stated Complaint: Depression/ETOH Time Seen by Provider: 10/23/23 21:08 History of Present Illness HPI narrative: Patient is a 48-year-old male positive EtOH feels depressed has no suicidal homicidal ideation. Came in wanting help. He denies any recreational drug use. Patient states he is on Suboxone wants to get help for stopping drinking. Related Data Home Medications ?Medication ?Instructions ?Recorded ?Confirmed buprenorphine 8 mg-naloxone 2 mg 20 mg sublingual DAILY 10/04/20 08/19/23 sublingual film Previous Rx's ?Medication ?Instructions ?Recorded blood sugar diagnostic (OneTouch #100 ea 11/26/20 Verio test strips) blood-glucose meter (OneTouch #1 ea 11/26/20 Verio Meter) pen needle, diabetic 31 gauge x #150 ea 09/16/21/ (Comfort EZ Pen [place]) blood-glucose meter,continuous #1 ea 04/05/22 (Dexcom G6 Moving Consultant) blood-glucose transmitter (Dexcom #1 ea 07/10/22 G6 Transmitter device) glucagon 3 mg/actuation nasal 3 mg intranasal ONCE #2 ea 10/21/22 spray (Baqsimi) insulin pump cart,automated,BT #5 ea 10/26/22 (Omnipod 5 G6 Pods (Gen 5) subcutaneous cartridge) insulin pump cartridge,automated #1 ea 10/26/22 dose,BT with controller subcutaneous (Omnipod 5 G6 Intro Kit (Gen 5) subcutaneous cartridge with controller) insulin lispro 100 unit/mL See Rx Instructions subcut TID #45 11/11/22 subcutaneous pen (Humalog KwikPen mL (U-100) Insulin) insulin lispro 100 unit/mL 7 unit (0.07 mL) subcut TID #30 mL 11/11/22 subcutaneous solution (Humalog U-100 Insulin) blood-glucose sensor (Dexcom G6 #3 ea 12/11/22 Sensor device) atorvastatin 20 mg tablet 20 mg PO DAILY #90 tabs 07/09/23 albuterol sulfate 90 mcg/actuation 2 puff inhalation Q6H PRN 07/27/23 aerosol inhaler shortness of breath or wheezing #8.5 grams benzonatate 100 mg capsule 100 mg PO BID PRN cough #30 caps 07/27/23 insulin glargine 100 unit/mL (3 40 unit (0.4 mL) subcut BID #30 mL 07/27/23 mL) subcutaneous pen (Lantus Solostar U-100 Insulin) lisinopril 20 mg tablet 20 mg PO DAILY #90 tabs 08/04/23 tadalafil 5 mg tablet 5 mg PO DAILY Low T 90 days #90 08/05/23 tabs testosterone 4 pump transdermal DAILY 28 days 08/05/23 #150 grams Allergies Allergy/AdvReac Type Severity Reaction Status Date / Time No Known Allergies Allergy Verified 10/23/23 20:41 [No Known Allergies*] Review of Systems 2 Review of Systems: Positive EtOH Yes all other systems are reviewed and are negative PMFSH Past Medical History Attestation statement: The following information was validated with the patient. Medical History Joint pain Right hand tendonitis Vitamin D deficiency Type 1 diabetes HTN (hypertension) History of opioid abuse History of kidney stones History of cholelithiasis Dyslipidemia Surgical History History of surgery on wrist History of laparoscopic cholecystectomy Family History Family History Father Coronary artery disease Son Type 1 diabetes Mother No problems noted. 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 Oriented X3. No acute distress. Eyes: Pupils equal, round and reactive to light. ENT: Pharynx normal. Neck: Normal inspection. Neck supple. No lymph nodes noted. No crepitus CVS: Normal heart rate and rhythm. Pulses normal. Normal S1 and S2 Respiratory: No respiratory distress. Breath sounds normal. No Wheezing. No rales Abdomen: Soft and nontender. No rigidity. No distention. good BS x4 Skin: Skin warm and dry. Normal skin color. Normal skin turgor. Extremities: No lower extremity edema. Neurovascular intact to all extremities. No Lacerations. No Rash Neuro: Oriented X 3. No motor deficit. No sensory deficit. Moving all extermities. No slurred speech. Cranial nerves grossly intact Medical Decision Making Medical Decision Making [facility] Narrative: Patient well-appearing no acute distress. Positive depression no suicidal ideation. Will get crisis evaluate patient. In stable condition. Patient's alcohol is less than 100. Currently sober. Hemoglobin is 13 no evidence for anemia. Patient's kidney function is normal. Sugars 45. Anion gap is normal. LFTs are normal. Reports no chest pain. Patient clinically sober currently awaiting care team evaluation. Differential Diagnosis Differential Diagnoses: The differential diagnosis associated with the presentation includes Alcohol intoxication, depression Admission/Observation Consideration of admission/observation: Escalation of care including admission/observation considered Consult Healthcare Provider Management of the patient was discussed with: Well Drill Operator Rotary Drill (Crisis care team) Lab Data [facility] Lab Attestation statement: I reviewed the patient's lab results. 10/23/23 21:00 10/23/23 21:00 Labs: Lab Results 10/23/23 Range/Units 21:00 WBC 11.5 H (4.8-10.8) X10*3/uL RBC 4.04 L (4.60-5.80) X10*6/uL Hgb 13.5 L (14.0-18.0) g/dl Hct 38.6 L (42.0-52.0) % MCV 95.5 (80.0-98.0) fL MCH 33.4 H (27.0-33.0) pg MCHC 35.0 (31.0-36.0) g/dl RDW 12.5 (11.0-16.0) % Plt Count 227 (160-400) X10*3/uL MPV 9.9 (9.4-12.4) fL Immature Gran % (Auto) 0.3 (0.0-0.4) % Neut % (Auto) 82.7 H (45-73) % Lymph % (Auto) 9.2 L (20-40) % Fountain % (Auto) 7.2 (2-11) % Eos % (Auto) 0.3 (0-4) % Baso % (Auto) 0.3 (0-2) % Lymph # (Auto) 1.1 L (1.2-4.9) X10*3/uL Fountain # (Auto) 0.8 (0.1-1.2) X10*3/uL Eos # (Auto) 0.0 (0.0-0.4) X10*3/uL Baso # (Auto) 0.0 (0.0-0.2) X10*3/uL Abs Immat Gran (auto) 0.04 H (0.00-0.03) X10*3/uL Absolute Neuts (auto) 9.5 H (2.0-8.3) x10*3/uL Absolute Nucleated RBC 0.000 (0.0-0.012) X10*3/uL Nucleated RBC % (auto) 0.0 (0.0-0.2) /100WBC Sodium 133 L (135-145) mmol/L Potassium 4.9 D (3.3-5.1) mmol/L Chloride 92 L (96-108) mmol/L Carbon Dioxide 28 (22-29) mmol/L Anion Gap 18 (12-20) BUN 27 H (9-16) mg/dL Creatinine 1.31 (0.5-1.4) mg/dL Estim Creat Clear Calc 68.9 Estimated GFR 58 Random Glucose 245 H (60-115) mg/dL Calcium 9.4 (8.4-10.2) mg/dL Total Bilirubin 1.0 (0.0-1.0) mg/dL AST 25 (5-37) U/L ALT 40 (0-40) U/L Alkaline Phosphatase 104 (39-117) U/L Troponin I High Sens 5.2 (<3.5-35.0) ng/L Total Protein 6.7 (6.5-8.0) g/dL Albumin 4.2 (3.5-5.0) g/dL Ethyl Alcohol 68 mg/dL Independent Interpretation I performed an independent interpretation of an: EKG (Sinus heart rate is 60 NJ QRS QTC normal no acute ST segment elevation noted.) Radiology Impression Discussion of test interpretation with radiology: I have reviewed the radiologist's reading. Chronic Conditions Patient?s care impacted by: Diabetes Alcohol abuse Discharge Plan Discharge Clinical Impression: Alcoholic intoxication, Depression Patient Disposition: Still a Patient Prescriptions: No Action (DME) pen needle, diabetic [Comfort EZ Pen [place]] 31 gauge x 5/16 needle See Rx Instructions .ROUTE .MEDSUPPLY Qty: 150 11RF Rx Instructions: 4x daily (DME) Dexcom G6 Moving Consultant Misc See Rx Instructions .Route Qty: 1 2RF Rx Instructions: check blood sugar TID ac (DME) Dexcom G6 Transmitter Device See Rx Instructions .Route Qty: 1 1RF Rx Instructions: As directed Baqsimi 3 mg/actuation spray,non-aerosol 3 mg intranasal ONCE Qty: 2 3RF (DME) Omnipod 5 G6 Intro Kit (Gen 5) Cartridge See Rx Instructions .Route Qty: 1 0RF Rx Instructions: As directed change pod every 72 hours (DME) Omnipod 5 G6 Pods (Gen 5) Cartridge See Rx Instructions .Route Qty: 5 11RF Rx Instructions: As directed change pot every 72 hours insulin lispro [Humalog KwikPen Insulin] 100 unit/mL insulin pen See Rx Instructions subcut TID Qty: 45 5RF Rx Instructions: 18-20 units before meals subcutaneously 3 times a day; subcutaneously 3 times a day; insulin lispro [Humalog U-100 Insulin] 100 unit/mL solution 7 unit subcut TID Qty: 30 4RF Rx Instructions: Use up to 100 units per day via insulin pump (DME) Dexcom G6 Sensor Device See Rx Instructions .Route Qty: 3 5RF Rx Instructions: As directed insulin glargine [Lantus Solostar U-100 Insulin] 100 unit/mL (3 mL) insulin pen 40 unit subcut BID Qty: 30 2RF lisinopril 20 mg tablet 20 mg PO DAILY Qty: 90 1RF buprenorphine-naloxone 8-2 mg film 20 mg sublingual DAILY albuterol sulfate 90 mcg/actuation HFA aerosol inhaler 2 puff inhalation Q6H PRN (Reason: shortness of breath or wheezing) Qty: 8.5 0RF benzonatate 100 mg capsule 100 mg PO BID PRN (Reason: cough) Qty: 30 0RF atorvastatin 20 mg tablet 20 mg PO DAILY Qty: 90 1RF Rx Instructions: Schedule next PCP visit for future refills (DME) blood-glucose meter [OneTouch Verio Meter] Misc See Rx Instructions .ROUTE .MEDSUPPLY Qty: 1 0RF Rx Instructions: 3x/day (DME) OneTouch Verio test strips Strip See Rx Instructions .ROUTE .MEDSUPPLY Qty: 100 11RF Rx Instructions: Three times a day tadalafil 5 mg tablet 5 mg PO DAILY 90 Days Qty: 90 1RF Rx Instructions: dialy testosterone 20.25 mg/1.25 gram (1.62 %) gel in metered-dose pump 4 pump transdermal DAILY 28 Days Qty: 150 5RF Rx Instructions: apply 3 pumps total each day rub in till dry Print Language: Monegasque
[2023-10-24 00:44] VITALS: BP 115/68; PULSE 52; RESP 16; TEMP 36.8; O2SAT 94
[2023-10-24 03:31] VITALS: BP 106/72; PULSE 50; RESP 14; O2SAT 97
[2023-10-24 06:05] VITALS: BP 123/65; PULSE 50; RESP 16; O2SAT 97
[2023-10-24 08:28] VITALS: BP 93/39; PULSE 61; RESP 18; TEMP 36.6; O2SAT 94
--- NOTE | 2023-10-24 08:33 | ECG_ITS ---
Test Reason : CHGEST PAIN Blood Pressure : / mmHG Vent. Rate : 058 BPM Atrial Rate : 058 BPM P-R Int : 138 ms QRS Dur : 082 ms QT Int : 448 ms P-R-T Axes : 041 058 049 degrees QTc Int : 439 ms Sinus bradycardia Otherwise normal ECG When compared with ECG of 23-OCT-2023 21:01, No significant change was found Referred By: Lai Darnell Electronically Signed By:KOFFI OWENS MD
--- NOTE | 2023-10-24 08:35 | PC.NURSE ---
Addendum entered by Ruth Peralta 10/24/23 08:58: pt also put on a portable tele monitor Original Note: pt is alert and oriented, skin pwd, respirations even and unlabored, pt ate breakfast, pt is reporting mid to right sided chest pain 6/10, no nausea, no visible hand tremor but is also reporting blurry vision, pt reports last drink was about 15-16 hours ago, denies si/hi at this time. provider castillo of the chest pain and lower bp
--- NOTE | 2023-10-24 08:57 | PC.NURSE ---
recovery team at bedside
--- NOTE | 2023-10-24 09:28 | MHC.RECOVRN ---
Met with patient in the ED [facility] bed 18, was consulted for AUD. Pt alert and oriented x4, at bedside. core composer feeder noted due to patient acknowledging new chest pain to medical team. Pt came to ER with concerns of withdrawal, and looking for help with his alcohol use. He admits to 5-8 nips of vodka daily, and states if he stops I get sick . He is on Suboxone daily, which he gets from his PCP. states her concern is his stressful work/life ballance, he works alot, and is also looking for outpt refferal for counseling. Patient and requesting outpt guidance, appt made tommorow for intake in our office at 0945.
[2023-10-24 09:40] LABS: Troponin-I High Sensitivity 2.7 ng/L (<3.5-35.0)
[2023-10-24] MEDS: Magnesium Hydrox/Alum Hydrox 30 ML ORAL.SUSP 15 ML PO (09:44)
[2023-10-24] MEDS: Ketorolac Tromethamine 15 MG/ML VIAL 30 MG IVPUSH (09:44)
[2023-10-24] MEDS: 0.9 % Sodium Chloride 1,000 ML 999 ML IV ×2 (09:44→10:46)
[2023-10-24 10:49] VITALS: BP 118/61; PULSE 54; RESP 18
[2023-10-24] MEDS: iohexoL 350 MG/ML 100 ML INFUS..BTL 65 ML IV (11:14)
[2023-10-24 11:37] LABS: D Dimer High Sensitivity 228 NG/ML
[2023-10-24 12:30] VITALS: BP 132/78; PULSE 47; RESP 10; TEMP 36.7; O2SAT 94
== END 2023-10-24 12:39 | disposition home or self-care (01) ==
PROVIDERS: Physician Assistant; Emergency Provider Emergency Medicine Emergency Medical Services; PCP Internal Medicine
DX: F10.129 Alcohol abuse with intoxication, unspecified (principal); F32.A Depression, unspecified; E10.9 Type 1 diabetes mellitus without complications; Z79.4 Long term (current) use of insulin; I10 Essential (primary) hypertension; E78.5 Hyperlipidemia, unspecified; Z79.899 Other long term (current) drug therapy
CPT/HCPCS: 36415; 71275; 80053; 80307; 84484; 85025; 85379; 93005; 96361; 96374; 99284; 99285; J1885; Q9967

== ENCOUNTER → 2023-10-23 20:52 | Outpatient (BNV) | payer BC, SELFPAY | PROVIDERS: Emergency Provider Emergency Medicine Emergency Medical Services; PCP Internal Medicine; Visit Provider Internal Medicine Cardiovascular Disease | DX: R00.1 Bradycardia, unspecified (principal) | CPT/HCPCS: 93010 ==

== ENCOUNTER → 2023-10-24 08:33 | Outpatient (BNV) | payer BC, SELFPAY | PROVIDERS: Emergency Provider Emergency Medicine Emergency Medical Services; PCP Internal Medicine; Visit Provider Internal Medicine Cardiovascular Disease | DX: R07.9 Chest pain, unspecified (principal) | CPT/HCPCS: 93010 ==

== ENCOUNTER 2023-10-25 09:53 | Outpatient (AMB) | payer BC, SELFPAY ==
[2023-10-25 10:00] VITALS: BP 124/78; PULSE 78; O2SAT 97
--- NOTE | 2023-10-25 10:00 | A.OFFVISCC_ITS ---
Vital Signs 10/25/23 10:00 BP 124/78 Blood Pressure Location Rt brachial Position Sitting Pulse 78 Pulse Source Pulse Oximeter Pulse Oximetry (%) 97 Oxygen Delivery Method Room Air Intake Visit Reasons: Intake Allergies No Known Allergies [No Known Allergies*] Allergy (Verified 10/23/23 20:41) HPI HPI Intake: Details: Patient presents for intake and evaluation with his he was referred from the ED after being seen by Recovery Support RN He reports drinking 5-8 nips daily for a couple of years decreased to 2 nips too quickly and resulted in presenting to the ED Last drink prior to visit this morning no history of treatment for alcohol During visit patient noted ot be anxious, perhaps slighlty impaired due to alcohol use. this ghost writer inquired if patient would prefer an inpatient admission to address AUD and he reported yes. RN assisted with facilitating referral and patient called to complete intake from office remainder of intake deferred [facility] Medical History Joint pain Right hand tendonitis Vitamin D deficiency Type 1 diabetes HTN (hypertension) History of opioid abuse History of kidney stones History of cholelithiasis Dyslipidemia Surgical History History of surgery on wrist History of laparoscopic cholecystectomy Family History Father Coronary artery disease Son Type 1 diabetes Mother No problems noted. 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 Cognitive needs: No Hearing needs: No Vision needs: Yes Review of Systems Const Reports as per HPI, Reports difficulty sleeping, Reports lethargy, Reports malaise and Reports poor appetite Physical Exam Vital Signs: Last Vital Signs Pulse 78 10/25/23 10:00 BP 124/78 10/25/23 10:00 Pulse Ox 97 10/25/23 10:00 Oxygen Delivery Method Room Air 10/25/23 10:00 Const General: cooperative, anxious and intoxicated appearing Orientation/consciousness: patient oriented x3 Neuro General: patient oriented x3 Assessment & Plan Assessment & Plan (1) Alcohol use disorder, severe, dependence: Code(s): F10.20 - Alcohol dependence, uncomplicated Category: Medical Plan: * patient to be admitted to [facility] later this evening * will follow up post discharge
== END 2023-10-25 10:52 | disposition home or self-care (01) ==
PROVIDERS: PCP Internal Medicine; Visit Provider Nurse Practitioner Psychiatric/Mental Health
DX: F10.20 Alcohol dependence, uncomplicated (principal)
CPT/HCPCS: 99203

== ENCOUNTER → 2023-10-25 09:53 | Outpatient (BNVA) | payer BC, SELFPAY | PROVIDERS: PCP Internal Medicine; Visit Provider Nurse Practitioner Psychiatric/Mental Health ==

== ENCOUNTER 2023-12-22 08:43 | Outpatient (AMB) | payer BC, SELFPAY ==
--- NOTE | 2023-12-22 08:43 | MHC.OFFVIS ---
Vital Signs 12/22/23 08:50 Height 5 ft 9 in Weight 187 lb 9.814 oz BMI 27.7 BP 118/70 Blood Pressure Location Lt brachial Position Sitting Pulse 73 Pulse Source Pulse Oximeter Pulse Oximetry (%) 96 Oxygen Delivery Method Room Air Intake Visit Reasons: + AINSLEY/CM Intake Note: Patient presents + AINSLEY. Allergies No Known Allergies [No Known Allergies*] Allergy (Verified 12/22/23 08:47) Medication List - Last Reconciled 12/22/23 by Jung Gonzalez MD albuterol sulfate 90 mcg/actuation 2 puffs inhalation Q6H PRN atorvastatin 20 mg PO DAILY blood sugar diagnostic ([employer] Verio test strips) Three times a day blood-glucose meter ([employer] Verio Meter) 3x/day blood-glucose meter,continuous (Dexcom G6 Swaging Machine Adjuster) check blood sugar TID ac blood-glucose sensor (GlySure G6 Sensor device) USE DIRECTED TO TEST BLOOD GLUCOSE blood-glucose transmitter (Dexcom G6 Transmitter device) As directed buprenorphine-naloxone 8-2 mg 20 mg sublingual DAILY glucagon 3 mg/actuation (Baqsimi) 3 mg intranasal ONCE insulin glargine (Lantus Solostar U-100 Insulin) 40 units (0.4 mL) subcut BID insulin lispro (Humalog KwikPen (U-100) Insulin) 18-20 units before meals subcutaneously 3 times a day; subcutaneously 3 times a day; insulin lispro (Humalog U-100 Insulin) 7 units (0.07 mL) subcut TID insulin pump cart,auto,BT-cntr (Omnipod 5 G6 Intro Kit (Gen 5) subcutaneous cartridge with controller) USE DIRECTED, CHANGING POD EVERY 72 HOURS insulin pump cart,automated,BT (Omnipod 5 G6 Pods (Gen 5) subcutaneous cartridge) As directed change pot every 72 hours lisinopril 20 mg PO DAILY pen needle, diabetic (Comfort EZ Pen [place]) 4x daily tadalafil 5 mg PO DAILY 90 days testosterone 4 pumps transdermal DAILY 28 days HPI Comments Details: This is a 48-year-old male presents for evaluation of multiple joint pain and positive AINSLEY. He stated that about a year ago he started having right wrist pain, stiffness, he also has stiffness in other joints such as his elbows, his feet. He takes ibuprofen 600 mg 3 times a day most days. Sometimes he takes Tylenol as well. He does not believe he gets any swollen joints. The stiffness is worse when he has been sitting down for some time and he gets up he will have stiffness of his feet. He has been using right thumb spica splint which is helpful as long as he wears it. denies any skin rashes. Denies any fevers, he has lost some weight over the last few months by modifying his diet and lifestyle. He believes his grandmother might have had rheumatoid arthritis or osteoarthritis. Patient has type 1 diabetes and his son who is 1.5years old also has type 1 diabetes. He denies any history of DVT/PE. He denies any history suggestive of uveitis or colitis [facility] Medical History Joint pain Right hand tendonitis Vitamin D deficiency Type 1 diabetes HTN (hypertension) History of opioid abuse History of kidney stones History of cholelithiasis Dyslipidemia Surgical History History of surgery on wrist History of laparoscopic cholecystectomy Family History Father Coronary artery disease Son Type 1 diabetes Mother No problems noted. 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 Cognitive needs: No Hearing needs: No Vision needs: Yes Review of Systems Musc Reports arthralgias, Denies joint swelling, Reports numbness and Reports stiffness Skin/Breast Denies rash Neuro Reports numbness Physical Exam Vital Signs: Last Vital Signs Pulse 73 12/22/23 08:50 BP 118/70 12/22/23 08:50 Pulse Ox 96 12/22/23 08:50 Oxygen Delivery Method Room Air 12/22/23 08:50 BMI result Body Mass Index 27.7 Const General: cooperative, healthy appearing and comfortable Nutritional Appearance: average body habitus and overweight Orientation/consciousness: patient oriented x3 Limitations: no limitations HEENT Head: Yes normocephalic and Yes atraumatic Mouth: moist mucous membranes Resp Effort & Inspection: normal respiratory effort and able to speak in complete sentences Auscultation: clear to auscultation bilaterally Cardio Rate: regular rate Rhythm: regular rhythm GI Palpation (GI): Soft to palpation and nontender Skin General skin exam: no rashes or lesions noted Neuro General: patient oriented x3 Extrem Other: Significant osteoarthritic changes of both hands with prominent Piotr's and Heberden's nodes The Heberden's nodes are tender Significant right 1st CMC joint tenderness Equivocal Sabrina's test on the right Positive Tinel sign on the left Normal nailfold capillaroscopy Bilateral elbow pain with full extension Normal range of motion of shoulders without pain Negative empty can test and Speed's test bilaterally Negative straight leg raise test bilaterally Negative Fabere test bilaterally No knee pain with full flexion-extension Negative MTP squeeze test bilaterally No MTP tenderness bilaterally Cristo test 10-16 cm Results Reviewed Results Reviewed: I reviewed bilateral hand x-rays which showed degenerative changes Assessment & Plan Assessment & Plan (1) Bilateral hand pain: Code(s): M79.641 - Pain in right hand; M79.642 - Pain in left hand Category: Medical Plan: This is a 48-year-old male who presents for evaluation right hand pain as well as a positive AINSLEY 1-40. Upon evaluation patient has significant osteoarthritic changes of both hands, most prominent is the right 1st CMC joint which seems to be most symptomatic. I do not see any swollen joints on exam however given involvement of both his hands and elbows I will order comprehensive serology to screen for underlying autoimmune rheumatic disease bilateral hand and wrist ultrasound to evaluate for synovitis/tenosynovitis Follow-up in 6 weeks (2) Paresthesia of hand, bilateral: Code(s): R20.2 - Paresthesia of skin Category: Medical Plan: Positive Tinel sign on the left. Check bilateral upper extremity NCV/EMG Plan I spent 46 minutes reviewing patient's chart, evaluating patient, ordering diagnostic workup, counseling patient and documenting in the chart Orders: Orders US extremity nonvascular Today M19.90 - Unspecified osteoarthritis, unspecified site Complement C3 Today M32.9 - Systemic lupus erythematosus, unspecified Protein Creatinine Ratio, Ur Today M32.9 - Systemic lupus erythematosus, unspecified UA w Microscopic Today M32.9 - Systemic lupus erythematosus, unspecified Complete Blood Count Auto Diff Today M32.9 - Systemic lupus erythematosus, unspecified Comprehensive Met. Panel Today M32.9 - Systemic lupus erythematosus, unspecified T Spot TB Today Z11.7 - Encounter for testing for latent tuberculosis infection Cyclic Citrullinated Peptide Today M25.50 - Pain in unspecified joint HLA B27 Today M45.9 - Ankylosing spondylitis of unspecified sites in spine Anti Extractable Nuclear Ag Today M32.9 - Systemic lupus erythematosus, unspecified Anti DNA DS Antibody Today M32.9 - Systemic lupus erythematosus, unspecified Complement C4 Today M32.9 - Systemic lupus erythematosus, unspecified C Reactive Protein Today M32.9 - Systemic lupus erythematosus, unspecified DNA Double Stranded-Crithidia Today M32.9 - Systemic lupus erythematosus, unspecified Erythrocyte Sedimentation Rate Today M32.9 - Systemic lupus erythematosus, unspecified Sjogren's Antibodies Today M32.9 - Systemic lupus erythematosus, unspecified Hepatitis A,B,C Profile Today Z11.59 - Encounter for screening for other viral diseases Scleroderma 12 Panel Today M34.9 - Systemic sclerosis, unspecified NE electromyogram (EMG) Today R20.2 - Paresthesia of skin Coding Level of Care Code New Pt Level 4 (19746) Diagnoses Bilateral hand pain M79.641; M79.642 Paresthesia of hand, bilateral R20.2
[2023-12-22 08:50] VITALS: BP 118/70; PULSE 73; O2SAT 96; BMI 27.7
== END 2023-12-22 09:24 | disposition home or self-care (01) ==
PROVIDERS: PCP Internal Medicine; Visit Provider Student in an Organized Health Care Education/Training Program
DX: M79.641 Pain in right hand (principal); M79.642 Pain in left hand; R20.2 Paresthesia of skin
CPT/HCPCS: 99204

== ENCOUNTER → 2023-12-22 08:43 | Outpatient (BNVA) | payer BC, SELFPAY | PROVIDERS: PCP Internal Medicine; Visit Provider Student in an Organized Health Care Education/Training Program ==

== ENCOUNTER 2023-12-22 10:35 | Outpatient (REF) | payer BC, SELFPAY ==
[2023-12-22 13:02] LABS: MANUAL DIFF FLAG NO
[2023-12-22 13:09] LABS: Basophils Percent Auto 0.6 % (0-2); Eosinophils Absolute Auto 0.2 X10*3/uL (0.0-0.4); Eosinophils Percent Auto 2.8 % (0-4); Hematocrit 41.7 % (42.0-52.0); Hemoglobin 13.6 g/dl (14.0-18.0); Imm Gran Abs Auto 0.03 X10*3/uL (0.00-0.03); Imm Gran Pct Auto 0.6 % (0.0-0.4); Lymphocytes Absolute Auto 1.2 X10*3/uL (1.2-4.9); Lymphocytes Percent Auto 22.3 % (20-40); Mean Corpuscular HGB Conc 32.6 g/dl (31.0-36.0); Mean Corpuscular Hemoglobin 31.2 pg (27.0-33.0); Mean Corpuscular Volume 95.6 fL (80.0-98.0); Mean Platelet Volume 10.6 fL (9.4-12.4); Monocytes Absolute Auto 0.4 X10*3/uL (0.1-1.2); Monocytes Percent Auto 7.3 % (2-11); Neutrophils Absolute Auto 3.6 x10*3/uL (2.0-8.3); Neutrophils Percent Auto 66.4 % (45-73); Platelet Count 212 X10*3/uL (160-400); Red Blood Count 4.36 X10*6/uL (4.60-5.80); Red Cell Distribution Width 12.4 % (11.0-16.0); White Blood Count 5.4 X10*3/uL (4.8-10.8)
[2023-12-22 13:31] LABS: Appearance Urine Clear; Color Urine Yellow; Glucose Urine UA 500 mg/dL (Negative); Leukocyte Esterase Urine Negative (Negative); Nitrite Urine Negative (Negative); Urine Blood Negative (Negative); Urine Ketones Negative (Negative); Urine Protein Negative (Neg-Trace)
[2023-12-22 13:39] LABS: Alanine Aminotransferase 22 U/L (0-40); Albumin Level 4.5 g/dL (3.5-5.0); Alkaline Phosphatase 74 U/L (39-117); Anion Gap 13 (12-20); Aspartate Amino Transferase 15 U/L (5-37); Bilirubin Total 0.6 mg/dL (0.0-1.0); Blood Urea Nitrogen 12 mg/dL (9-16); C Reactive Protein < 0.10 mg/dL (< or = 0.50); Calcium 9.7 mg/dL (8.4-10.2); Carbon Dioxide 28 mmol/L (22-29); Chloride 101 mmol/L (96-108); Estimated Glomerular Filt Rate > 60; Glucose Random 227 mg/dL (60-115); Potassium 4.7 mmol/L (3.3-5.1); Sodium 137 mmol/L (135-145); Total Protein 6.6 g/dL (6.5-8.0)
[2023-12-22 13:43] LABS: HBS Num1 0.35 mIU/mL (0-7.99); HBc Num1 0.09 S/CO (0.00-0.79); HBsAGNum1 0.27 S/CO (0.00-0.99); Hepatitis A Antibody IgM 0.13 Index (0-0.79); Hepatitis B Core Antibody Nonreactive (Nonreactive); Hepatitis B Surface Antigen Negative (Negative); ~HepC Num1 0.07 S/CO (0.00-0.79); ~Hepatitis A Antibody IgM Nonreactive (Nonreactive); ~Hepatitis B Surface Antibody NONREACTIVE (Nonreactive); ~Hepatitis C Antibody Nonreactive (Nonreactive)
[2023-12-22 13:47] LABS: Bacteria Urine None Seen (None Seen); Hyaline Casts Urine 0-2 /LPF (0-2); RBC Urine 0-2 /HPF (0-2); Squamous Epithelial Cell Urine 0-2 /HPF (0-2); WBC Urine 0-5 /HPF (0-5)
[2023-12-22 13:52] LABS: Erythrocyte Sedimentation Rate 2 MM/HR (0-15)
[2023-12-22 14:42] LABS: Creatinine Urine 27.69 mg/dL; Total Protein Urine Random < 7 mg/dL (<12)
[2023-12-23 10:59] LABS: Complement C3 125 mg/dL (82-185)
[2023-12-24 14:44] LABS: Cyclic Citrullinated Peptide <16 UNITS
[2023-12-24 21:54] LABS: Anti DNA DS Antibody <1 IU/mL; Antibody to SS-A Antigen <1.0 NEG AI (<1.0 NEG); Antibody to SS-B Antigen <1.0 NEG AI (<1.0 NEG); SM/Ribonucleoprotein Ab <1.0 NEG AI (<1.0 NEG); Smith Protein <1.0 NEG AI (<1.0 NEG)
[2023-12-25 00:09] LABS: TS Negative Control Passed; TS Panel A 0; TS Panel B 0; TS Positive Control Passed; TSpotTB Negative (Negative)
[2023-12-28 10:13] LABS: HLA B27 Negative (Negative)
[2023-12-30 14:52] LABS: DNAds, Crithidia Antibody Negative (Negative)
[2024-01-02 15:43] LABS: Centromere Protein A Ab <11 SI (<11); Centromere Protein B Ab <11 SI (<11); Fibrillarin Ab <11 SI (<11); PM SCL 100 Ab <11 SI (<11); PM SCL 75 Ab <11 SI (<11); RNA Polymerase III RP11 Ab <11 SI (<11); RNA Polymerase III RP155 Ab <11 SI (<11); SCL-70 Extractable Nuclear Ab <11 SI (<11); Th-To Ab <11 SI (<11); U1 SNRNP RNP 70KD <11 SI (<11); U1 SNRNP RNP A <11 SI (<11); U1 SNRNP RNP C <11 SI (<11)
== END 2023-12-22 10:36 | disposition home or self-care (01) ==
LOC: HO.HMGCLDS 10:35
PROVIDERS: PCP Internal Medicine; Visit Provider Student in an Organized Health Care Education/Training Program
DX: M32.9 Systemic lupus erythematosus, unspecified (principal); Z11.7 Encounter for testing for latent tuberculosis infection; M25.50 Pain in unspecified joint; M45.9 Ankylosing spondylitis of unspecified sites in spine; M34.9 Systemic sclerosis, unspecified; Z11.59 Encounter for screening for other viral diseases
CPT/HCPCS: 36415; 80053; 81001; 82570; 84156; 84182; 85025; 85652; 86140; 86160; 86200; 86225; 86235; 86255; 86481; 86704; 86706; 86709; 86803; 86812; 87340

== ENCOUNTER 2024-01-12 13:32 | Outpatient (REF) | payer BC, SELFPAY ==
--- NOTE | 2024-01-12 13:35 | EMG_ITS ---
Chief complaint: Bilateral wrist/hand pain Left-handed. Previous surgery on left wrist 26 years ago with bone graft and metal screws for a fracture. Reason for referral: Evaluate for neuropathy or Carpal Tunnel Syndrome Referred by: Dr. Gonzalez Procedure done: Upper extremity NCS/EMG Precautions and/or limitations: None The limb temperature was monitored continuously and remained between 32-36 degrees C during the performance of the NCS. Nerve Conduction Studies Anti Sensory Summary Table ?Stim Site NR Onset (ms) Norm Onset (ms) Peak (ms) Norm Peak (ms) O-P Amp (?V) Norm O-P Amp Site1 Site2 Delta-0 (ms) Dist (cm) Gautam (m/s) Norm Gautam (m/s) Left Median Anti Sensory (2nd Digit) Wrist ? 3.3 4.2 <3.6 15.6 >10 Wrist 2nd Digit 3.3 14.0 42 Right Median Anti Sensory (2nd Digit) Wrist ? 2.2 3.1 <3.6 23.8 >10 Wrist 2nd Digit 2.2 14.0 64 Left Ulnar Anti Sensory (5th Digit) Wrist ? 2.6 3.3 <3.7 15.2 >15.0 Wrist 5th Digit 2.6 14.0 54 Right Ulnar Anti Sensory (5th Digit) Wrist ? 1.9 3.1 <3.7 9.3 >15.0 Wrist 5th Digit 1.9 14.0 74 Motor Summary Table ?Stim Site NR Onset (ms) Norm Onset (ms) O-P Amp (mV) Norm O-P Amp iAmp (mV) Amp (1st) (%) Site1 Site2 Delta-0 (ms) Dist (cm) Gautam (m/s) Norm Gautam (m/s) Left Median Motor (Abd Poll Brev) Wrist ? 4.3 <3.9 4.9 >4.5 5.8 100.0 Elbow Wrist 4.5 24.0 53 >45 Elbow ? 8.8 4.9 6.1 100.0 Right Median Motor (Abd Poll Brev) Wrist ? 3.0 <3.9 10.6 >4.5 12.5 100.0 Elbow Wrist 4.2 23.0 55 >45 Elbow ? 7.2 9.2 11.5 86.8 Left Ulnar Motor (Abd Dig Minimi) Wrist ? 2.7 <3.0 7.3 >5 8.5 100.0 B Elbow Wrist 3.8 21.0 55 >45 B Elbow ? 6.5 6.9 8.9 94.5 A Elbow B Elbow 1.5 10.0 67 >45 A Elbow ? 8.0 6.8 8.8 93.2 Right Ulnar Motor (Abd Dig Minimi) Wrist ? 2.6 <3.0 6.9 >5 8.7 100.0 B Elbow Wrist 4.3 23.0 53 >45 B Elbow ? 6.9 7.0 9.0 101.4 A Elbow B Elbow 1.6 10.0 63 >45 A Elbow ? 8.5 7.3 8.9 105.8 Comparison Summary Table ?Stim Site NR Peak (ms) Norm Peak (ms) P-T Amp (?V) Site1 Site2 Delta-P (ms) Norm Delta (ms) Right Median/Radial Dig I Comparison (Digit 1 - 10cm) Median ? 2.5 <2.9 92.5 Median Radial 0.0 Radial ? 2.5 <2.8 12.3 EMG ?Side Muscle Nerve Root Ins Act Fibs Psw Amp Dur Poly Recrt Int Pat Comment Right 1stDorInt Ulnar C8-T1 Nml Nml Nml Nml Nml 0 Nml Complete Right FlexCarRad Median C6-7 Nml Nml Nml Nml Nml 0 Nml Complete Right Biceps Musculocut C5-6 Nml Nml Nml Nml Nml 0 Nml Complete Right Triceps Radial C6-7-8 Nml Nml Nml Nml Nml 0 Nml Complete Right Deltoid Axillary C5-6 Nml Nml Nml Nml Nml 0 Nml Complete Left 1stDorInt Ulnar C8-T1 Nml Nml Nml Nml Nml 0 Nml Complete Left FlexCarRad Median C6-7 Nml Nml Nml Nml Nml 0 Nml Complete Left Biceps Musculocut C5-6 Nml Nml Nml Nml Nml 0 Nml Complete Left Triceps Radial C6-7-8 Nml Nml Nml Nml Nml 0 Nml Complete Left Deltoid Axillary C5-6 Nml Nml Nml Nml Nml 0 Nml Complete FINDINGS: Left median motor nerve showed prolonged distal latency, normal amplitude and normal conduction velocity. Left median sensory nerve showed prolonged peak latency. All other nerves tested were within normal. Concentric needle EMG was performed in selected muscles of the bilateral upper extremities. Study L did not reveal signs of electric abnormalities as shown in the table above. IMPRESSION: 1. This is an abnormal study. 2. There is electrodiagnostic evidence for left moderate-severe median neuropathy at the wrist, consistent with carpal tunnel syndrome. 3. There is no electrodiagnostic evidence for ulnar neuropathy, brachial plexopathy, or cervical radiculopathy. 4. There is no electrodiagnostic evidence for median neuropathy on the right. Thank you for your kind referral. Lynn Hamilton MD, LYNN Board Certified, [place] [employer] and [employer] (ABPMR) Board Certified, [place] Board of Electrodiagnostic Medicine (ABEM) CODIN [phone] x 2 MTDD
== END 2024-01-12 13:33 | disposition home or self-care (01) ==
LOC: HO.NEURO 13:32
PROVIDERS: PCP Internal Medicine; Visit Provider Student in an Organized Health Care Education/Training Program
DX: R20.2 Paresthesia of skin (principal)
CPT/HCPCS: 95886; 95911

== ENCOUNTER → 2024-01-12 13:35 | Outpatient (BNV) | payer BC, SELFPAY | PROVIDERS: PCP Internal Medicine; Visit Provider Physical Medicine & Rehabilitation | DX: G56.02 Carpal tunnel syndrome, left upper limb (principal); R20.2 Paresthesia of skin | CPT/HCPCS: 95886; 95911 ==

== ENCOUNTER 2024-02-02 15:05 | Outpatient (REF) | payer BC, SELFPAY ==
[2024-02-02 15:32] LABS: Hemoglobin 13.5 g/dl (14.0-18.0); Mean Corpuscular HGB Conc 33.8 g/dl (31.0-36.0); Mean Corpuscular Hemoglobin 30.8 pg (27.0-33.0); Mean Corpuscular Volume 91.1 fL (80.0-98.0); Mean Platelet Volume 10.1 fL (9.4-12.4); Platelet Count 203 X10*3/uL (160-400); Red Blood Count 4.39 X10*6/uL (4.60-5.80); Red Cell Distribution Width 12.4 % (11.0-16.0); White Blood Count 5.7 X10*3/uL (4.8-10.8)
[2024-02-02 16:19] LABS: Prostate Specific Antigen 0.47 ng/mL (<0.05-4.0)
[2024-02-07 14:14] LABS: Testosterone, Total 916 ng/dL (250-1100)
== END 2024-02-02 15:06 | disposition home or self-care (01) ==
LOC: HO.LAB 15:05
PROVIDERS: PCP Internal Medicine; Visit Provider Urology
DX: E29.1 Testicular hypofunction (principal); Z12.5 Encounter for screening for malignant neoplasm of prostate
CPT/HCPCS: 36415; 84153; 84403; 85027

== ENCOUNTER 2024-02-14 12:24 | Outpatient (AMB) | payer BC, SELFPAY ==
[2024-02-14 12:35] VITALS: BP 110/64; PULSE 76; O2SAT 97; BMI 28.1
--- NOTE | 2024-02-14 12:35 | MHC.OFFVIS ---
Vital Signs 02/14/24 12:35 Height 5 ft 9 in Weight 190 lb BMI 28.1 BP 110/64 Blood Pressure Location Lt brachial Position Sitting Pulse 76 Pulse Source Pulse Oximeter Pulse Oximetry (%) 97 Oxygen Delivery Method Room Air Intake Visit Reasons: AINSLEY+ve Intake Note: Patient presents today for follow up on bilateral hand pain, AINSLEY+dx, and ultrasound. He was lastseen on 12/22/2023. Allergies No Known Allergies [No Known Allergies*] Allergy (Verified 02/14/24 12:36) Medication List - Last Reconciled 02/14/24 by Jung Gonzalez MD albuterol sulfate 90 mcg/actuation 2 puffs inhalation Q6H PRN atorvastatin 20 mg PO DAILY blood sugar diagnostic ([employer] Verio test strips) Three times a day blood-glucose meter ([employer] Verio Meter) 3x/day blood-glucose meter,continuous (Dexagri.capital G6 Tail Worker) check blood sugar TID ac blood-glucose sensor ([employer] G6 Sensor device) USE DIRECTED TO TEST BLOOD GLUCOSE blood-glucose transmitter (Dexagri.capital G6 Transmitter device) As directed buprenorphine-naloxone 8-2 mg 20 mg sublingual DAILY glucagon 3 mg/actuation (Baqsimi) 3 mg intranasal ONCE insulin glargine (Lantus Solostar U-100 Insulin) 40 units (0.4 mL) subcut BID insulin lispro (Humalog KwikPen (U-100) Insulin) 18-20 units before meals subcutaneously 3 times a day; subcutaneously 3 times a day; insulin lispro (Humalog U-100 Insulin) 7 units (0.07 mL) subcut TID insulin pump cart,auto,BT-cntr (Omnipod 5 G6 Intro Kit (Gen 5) subcutaneous cartridge with controller) USE DIRECTED, CHANGING POD EVERY 72 HOURS insulin pump cart,automated,BT (Omnipod 5 G6 Pods (Gen 5) subcutaneous cartridge) As directed change pot every 72 hours lisinopril 20 mg PO DAILY pen needle, diabetic (Comfort EZ Pen [place]) 4x daily tadalafil 5 mg PO DAILY 90 days testosterone 4 pumps transdermal DAILY 28 days HPI Comments Details: Patient returns for follow-up after completion of his diagnostic workup. Continues to feel about the same Initial history: This is a 48-year-old male presents for evaluation of multiple joint pain and positive AINSLEY. He stated that about a year ago he started having right wrist pain, stiffness, he also has stiffness in other joints such as his elbows, his feet. He takes ibuprofen 600 mg 3 times a day most days. Sometimes he takes Tylenol as well. He does not believe he gets any swollen joints. The stiffness is worse when he has been sitting down for some time and he gets up he will have stiffness of his feet. He has been using right thumb spica splint which is helpful as long as he wears it. denies any skin rashes. Denies any fevers, he has lost some weight over the last few months by modifying his diet and lifestyle. He believes his grandmother might have had rheumatoid arthritis or osteoarthritis. Patient has type 1 diabetes and his son who is 1.5years old also has type 1 diabetes. He denies any history of DVT/PE. He denies any history suggestive of uveitis or colitis [facility] Medical History (Updated 02/14/24 @ 13:04 by Jung Gonzalez MD) Joint pain Right hand tendonitis Vitamin D deficiency Type 1 diabetes HTN (hypertension) History of opioid abuse History of kidney stones History of cholelithiasis Dyslipidemia Surgical History History of surgery on wrist History of laparoscopic cholecystectomy Family History Father Coronary artery disease Son Type 1 diabetes Mother No problems noted. 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 Cognitive needs: No Hearing needs: No Vision needs: Yes Review of Systems Musc Reports arthralgias, Denies joint swelling, Reports numbness and Reports stiffness Skin/Breast Denies rash Neuro Reports numbness Physical Exam Vital Signs: Last Vital Signs Pulse 76 02/14/24 12:35 BP 110/64 02/14/24 12:35 Pulse Ox 97 02/14/24 12:35 Oxygen Delivery Method Room Air 02/14/24 12:35 BMI result Body Mass Index 28.1 Const General: cooperative, healthy appearing and comfortable Nutritional Appearance: average body habitus and overweight Orientation/consciousness: patient oriented x3 Limitations: no limitations HEENT Head: Yes normocephalic and Yes atraumatic Resp Effort & Inspection: normal respiratory effort and able to speak in complete sentences Neuro General: patient oriented x3 Extrem Other: Patient wearing right thumb spica splint Significant osteoarthritic changes of both hands with prominent Piotr's and Heberden's nodes The Heberden's nodes are tender Significant right 1st CMC joint tenderness Equivocal Sabrina's test on the right Normal nailfold capillaroscopy Bilateral elbow pain with full extension Normal range of motion of shoulders without pain Negative empty can test and Speed's test bilaterally Negative straight leg raise test bilaterally Negative Fabere test bilaterally No knee pain with full flexion-extension Negative MTP squeeze test bilaterally No MTP tenderness bilaterally Cristo test 10-16 cm Assessment & Plan Assessment & Plan (1) Osteoarthritis of right thumb: Code(s): M18.11 - Unilateral primary osteoarthritis of first carpometacarpal joint, right hand Category: Medical Plan: This is a 48-year-old male who presents for evaluation of bilateral hand pain in the context of positive AINSLEY 1-40. Upon evaluation I do not see any evidence of an autoimmune rheumatic disease. Comprehensive sub serologies and inflammatory markers are normal. Bilateral hand and wrist ultrasound showed mild tenosynovitis of right 2nd extensor compartment but I think this is an incidental finding that does not correlate with his symptoms and not due to inflammatory arthritis. Clinical picture rather consistent with bilateral hand osteoarthritis. Referred patient to hand surgeon (2) Right carpal tunnel syndrome: Code(s): G56.01 - Carpal tunnel syndrome, right upper limb Category: Medical Plan: Referred patient to hand surgeon Plan I spent 24 minutes reviewing patient's chart, evaluating patient, counseling patient and documenting in the chart Orders: Referrals Hand Surgery Referral G56.01 - Carpal tunnel syndrome, right upper limb, M18.11 - Unilateral primary osteoarthritis of first carpometacarpal joint, right hand Coding Level of Care Code Est Pt Level 3 (51312) Diagnoses Osteoarthritis of right thumb M18.11 Right carpal tunnel syndrome G56.01
== END 2024-02-14 13:01 | disposition home or self-care (01) ==
PROVIDERS: PCP Internal Medicine; Visit Provider Student in an Organized Health Care Education/Training Program
DX: M18.11 Unilateral primary osteoarthritis of first carpometacarpal joint, right hand (principal); G56.01 Carpal tunnel syndrome, right upper limb
CPT/HCPCS: 99213

== ENCOUNTER → 2024-02-14 12:24 | Outpatient (BNVA) | payer BC, SELFPAY | PROVIDERS: PCP Internal Medicine; Visit Provider Student in an Organized Health Care Education/Training Program ==

== ENCOUNTER 2024-02-15 09:19 | Outpatient (AMB) | payer BC, SELFPAY ==
--- NOTE | 2024-02-15 09:22 | MHC.OFFVIS ---
Intake Visit Reasons: 6M Follow Up- PSA/Testo(set) Intake Note: Patient is Present for Follow Up PSA/Testosterone Urology Medication: Tadalafil, Testosterone Antibiotic Allergies:None Blood Thinners: None 02/02/24- PSA- 0.47 Testosterone: 916 Last PSA: 0.52 Testosterone- 864 [address] Required: No Accompanied by: Self / Same As Patient Allergies No Known Allergies [No Known Allergies*] Allergy (Verified 02/15/24 09:28) Medication List - Last Reconciled 02/15/24 by Hilton Mattson MD albuterol sulfate 90 mcg/actuation 2 puffs inhalation Q6H PRN atorvastatin 20 mg PO DAILY blood sugar diagnostic (Instantisuch Verio test strips) Three times a day blood-glucose meter (Instantisuch Verio Meter) 3x/day blood-glucose meter,continuous (Dexcom G6 Irrigation Equipment Remover) check blood sugar TID ac blood-glucose sensor (LightInTheBox.[email or web address] G6 Sensor device) USE DIRECTED TO TEST BLOOD GLUCOSE blood-glucose transmitter (DexmyTomorrows G6 Transmitter device) As directed buprenorphine-naloxone 8-2 mg 20 mg sublingual DAILY glucagon 3 mg/actuation (Baqsimi) 3 mg intranasal ONCE insulin glargine (Lantus Solostar U-100 Insulin) 40 units (0.4 mL) subcut BID insulin lispro (Humalog KwikPen (U-100) Insulin) 18-20 units before meals subcutaneously 3 times a day; subcutaneously 3 times a day; insulin lispro (Humalog U-100 Insulin) 7 units (0.07 mL) subcut TID insulin pump cart,auto,BT-cntr (Omnipod 5 G6 Intro Kit (Gen 5) subcutaneous cartridge with controller) USE DIRECTED, CHANGING POD EVERY 72 HOURS insulin pump cart,automated,BT (Omnipod 5 G6 Pods (Gen 5) subcutaneous cartridge) As directed change pot every 72 hours lisinopril 20 mg PO DAILY pen needle, diabetic (Comfort EZ Pen Bloxom) 4x daily tadalafil 5 mg PO DAILY 90 days testosterone 4 pumps transdermal DAILY 28 days HPI Comments Details: Jacek is a pleasant male.? He is a patient of Dr. Dyer.? He is seen for the following urologic conditions - hypogonadism - lower urinary tract symptoms - erectile dysfunction Six-month review 3 pumps per day Stable T Jacek has had issues with insurance coverage for testosterone He has been on testosterone since soon after his diabetes diagnosis in 2017 The original diagnostic laboratories are no longer available His symptoms of lack of energy, decreased muscle mass and decreased libido all respond to testosterone therapy It will be expected that he will remain on testosterone for the foreseeable future Good response to low-dose daily tadalafil for erectile issues Hypogonadism Longstanding - naltrexone use Treated with AndroGel - 4 pumps per day Laboratories - 01/25 T 712, 12/26 T 650 P 0.5, 06/29 T 600 P 0.6 H 43, 01/27 T 700 P 0.6, 07/31 T 865 P 0.5. 01/28 900 P 0.5 H 40 Comorbidities include Type 1 diabetes with insulin use, dyslipidemia Therapeutic plan - continue to follow with labs every 6 months Erectile dysfunction Low-dose tadalafil daily with good response Lower urinary tract symptoms Weakness of stream Had been placed on Flomax? [facility] Medical History Joint pain Right hand tendonitis Vitamin D deficiency Type 1 diabetes HTN (hypertension) History of opioid abuse History of kidney stones History of cholelithiasis Dyslipidemia Surgical History History of surgery on wrist History of laparoscopic cholecystectomy Family History Father Coronary artery disease Son Type 1 diabetes Mother No problems noted. 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 Cognitive needs: No Hearing needs: No Vision needs: Yes Review of Systems Const Denies chills and Denies fever(s) Card Reports no additional complaints and Denies syncope Resp Denies cough GI Denies abdominal pain and Denies heartburn Reports as per HPI and Denies change in libido Neuro Denies syncope Psych Denies change in libido Endo Denies change in libido Physical Exam Const General: cooperative, healthy appearing, comfortable and no acute distress Orientation/consciousness: patient oriented x3 HEENT Face and sinus: Yes normal facial exam Mouth: moist mucous membranes Neck Neck: Yes normal visual inspection, Yes full ROM and Yes trachea midline Chest Chest palpation & inspection: normal inspection of the chest Resp Effort & Inspection: normal respiratory effort, able to speak in complete sentences and no respiratory distress GI Inspection: Yes normal to inspection Back/Spine/Pelvis Cervical Spine: normal cervical lordosis Thoracic/Lumbar Spine: thoracic and lumbar spine normal to inspection Skin General skin exam: no rashes or lesions noted Neuro General: patient oriented x3, gait normal, tone normal and moves all extremities Extrem General: Yes normal to inspection and Yes capillary refill normal Assessment & Plan Assessment & Plan (1) Erectile dysfunction due to diabetes mellitus: Code(s): E11.69 - Type 2 diabetes mellitus with other specified complication; N52.1 - Erectile dysfunction due to diseases classified elsewhere Category: Medical (2) Hypogonadism in male: Code(s): E29.1 - Testicular hypofunction Category: Medical Plan Six-month follow-up labs tele Orders: Orders Testosterone, Total 6 Months E29.1 - Testicular hypofunction Prostate Specific Antigen 6 Months E29.1 - Testicular hypofunction Complete Blood Count no Diff 6 Months E29.1 - Testicular hypofunction Medications: Changed From testosterone apply 3 pumps total each day rub in till dry 4 pumps transdermal DAILY 28 days 150 grams 5RF E29.1 - Testicular hypofunction To testosterone apply 3 pumps total each day rub in till dry 3 pumps transdermal DAILY 28 days 150 grams 5RF E29.1 - Testicular hypofunction Refilled tadalafil dialy 5 mg PO DAILY 90 days 90 tabs 1RF Low T E29.1 - Testicular hypofunction Patient Instructions: Imaging studies, laboratory and physical exam results were discussed and reviewed in detail. No major barriers to patient understanding were identified. An opportunity to ask questions regarding the treatment plan was provided. All questions were answered. The patient expressed understanding and agreement with the above treatment plan. The patient is aware they should contact our office by phone for worsening of their current condition or the appearance of new urologic symptoms. Compliance is encouraged with any medications and followup testing that is ordered. It is a privilege to participate in the urologic care of your patient. If you have any questions or concerns regarding treatment for the above conditions, or other urologic issues, please do not hesitate to contact me. The office telephone contact is [phone]. This note is constructed using voice recognition software. While every effort has been made to ensure accuracy horticultural farmer errors may have been included. Yours sincerely, Dr Hilton Mattson MD, [facility] - Urology Providers of Expert, Compassionate Care for the Genitourinary System Coding Level of Care Code Est Pt Level 3 (83036) Diagnoses Erectile dysfunction due to diabetes mellitus E11.69; N52.1 Hypogonadism in male E29.1
== END 2024-02-15 09:49 | disposition home or self-care (01) ==
PROVIDERS: PCP Internal Medicine; Visit Provider Urology
DX: E11.69 Type 2 diabetes mellitus with other specified complication (principal); N52.1 Erectile dysfunction due to diseases classified elsewhere; E29.1 Testicular hypofunction
CPT/HCPCS: 99213

== ENCOUNTER → 2024-02-15 09:19 | Outpatient (BNVA) | payer BC, SELFPAY | PROVIDERS: PCP Internal Medicine; Visit Provider Urology ==

== ENCOUNTER 2024-03-15 10:46 | Outpatient (AMB) | payer BC, SELFPAY ==
[2024-03-15 10:55] VITALS: BMI 28.1
--- NOTE | 2024-03-15 10:55 | A.OFFVIS_ITS ---
Vital Signs 03/15/24 10:55 Height 5 ft 9 in Weight 190 lb BMI 28.1 Intake Visit Reasons: [employer]- Right Hand CTS, OA Intake Note: Jacek is a 48 yo left hand dominant male who presents today as a new patient for RIGHT hand pain that started approximately a year ago. 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 He shares he is experiencing pain on the right basal joint. Denies finger locking. Patient states pain is worse when using the right hand in general. He has been wearing a right hand brace he got OTC. Denies any prior injuries to the right hand. He had a ganglion cyst excision about 3 years ago, dorsal aspect of the right hand. Patient is interested on a steroid injection today. Patient is interested on having LEFT CTR. 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 Patient states it is worse at night. Denies finger locking. Reports he had a procedure on the left hand back in 1998 where they took bone from his hip and placed it on the left wrist. He states he has pins and screws. EMG done 01/12/24 showing LEFT CTS. Allergies No Known Allergies [No Known Allergies*] Allergy (Verified 03/15/24 11:02) HPI HPI [employer]- Right Hand CTS, OA: Details: Jacek is a 48 year old left hand dominant Diabetic man who presents with multiple complaints today. He complains of pain in his right hand, primarily at the base of his thumb. is pain is worse with pinching & gripping activities. He denies any prior treatment options. 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 He is seen today wearing an OTC thumb brace, which he finds somewhat helpful. He also complains of numbness & tingling in his left thumb, index, and middle fingers. Symptoms intermittent, but daily, worse at night. 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 He denies any prior treatment options. He has been seen by Rheumatology and was negative for Rheumatoid arthritis. He is a Type 1 Diabetic and says this is well-controlled. He complains of his hands feeling cold and going white easily when outside. 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 He has a Hx of ETOH abuse & a left scaphoid fracture. He has a Hx of smoking but says he quit 10+ years ago. [facility] Medical History Joint pain Right hand tendonitis Vitamin D deficiency Type 1 diabetes HTN (hypertension) History of opioid abuse History of kidney stones History of cholelithiasis Dyslipidemia Surgical History History of surgery on wrist History of laparoscopic cholecystectomy Family History Father Coronary artery disease Son Type 1 diabetes Mother No problems noted. 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 Cognitive needs: No Hearing needs: No Vision needs: Yes Review of Systems Const All systems reviewed & are unremarkable except as noted in HPI and below Physical Exam Vital Signs: BMI result Body Mass Index 28.1 Const General: cooperative, healthy appearing and no acute distress Orientation/consciousness: patient oriented x3 HEENT Head: Yes normocephalic and Yes atraumatic Eyes EOM: EOMs intact bilaterally Resp Effort & Inspection: normal respiratory effort and able to speak in complete sentences Cardio Jugular venous distension: no JVD Skin General skin exam: turgor normal Rashes: no rashes Neuro General: patient oriented x3 Extrem Other: Evaluation of Bilateral Upper Extremity: The patient is alert, oriented, and in no acute distress Neuro: Median, Ulnar, Radial nerves motor and sensory intact and sensation is normal to the tips of all digits No thenar or intrinsic wasting Good APB muscle belly firing and good finger cross Vascular: Cap refill brisk ROM: He can make a fist and extend all his digits bilaterally No locking or catching Skin: No lacerations or abrasions. General: No Ecchymosis. No Erythema or evidence of infection. Most tender over the basal joint of the right thumb Pos shoulder sign Pos CMC grind No tenderness over the a1 swathi or MCP joint No tenderness over the 1st dorsal compartment Radiographs: 3 views of the right hand from 08/19/23 were reviewed by me today in clinic. There are no fractures or dislocations. There is basal joint osteoarthritis with joint space narrowing, osteophyte formation, and subchondral sclerosis. There is an osteolytic lesion at the middle finger middle phalanx base, osteolytic lesion. there is an ~1mm diameter metallic foreign body in the 1st webspace. There is also a mass just ulnar to the proximal phalanx base of the small finger, which appears as a linear metallic foreign body. 3 views of the left hand from 12/17/21 were reviewed by me today in clinic. They show a a healed scaphoid fracture, S/P ORIF, and an old healed ulnar styloid fracture. Nerve Conduction Study: IMPRESSION: 1. This is an abnormal study. 2. There is electrodiagnostic evidence for left moderate-severe median neuropathy at the wrist, consistent with carpal tunnel syndrome. 3. There is no electrodiagnostic evidence for ulnar neuropathy, brachial plexopathy, or cervical radiculopathy. 4. There is no electrodiagnostic evidence for median neuropathy on the right. Lynn Hamilton MD, [facility] 01/12/24 Psych Appearance: grossly normal Affect: normal affect Attitude: cooperative Office Procedures AMB Fracture Care Details: No fracture, injection Fracture Billing Code: Fracture Billing Code Assessment & Plan Assessment & Plan (1) Arthritis of carpometacarpal (CMC) joint of right thumb: Code(s): M18.11 - Unilateral primary osteoarthritis of first carpometacarpal joint, right hand Category: Medical (2) Right carpal tunnel syndrome: Code(s): G56.01 - Carpal tunnel syndrome, right upper limb Category: Medical (3) Alcohol use disorder, severe, dependence: Code(s): F10.20 - Alcohol dependence, uncomplicated Category: Medical (4) Type 1 diabetes: Code(s): E10.9 - Type 1 diabetes mellitus without complications Category: Medical Plan Assessment & Plan: 1. Right basal joint arthritis This is his chief complaint today I educated him about this condition I discussed operative and non-operative treatment options The patient would like to proceed with an injection I discussed activity modification, they should limit or avoid any heavy or repetitive pinching or gripping activities He was fitted for a comfort cool brace to wear with daily activity 2. Left carpal tunnel syndrome, moderate-severe Symptoms intermittent, but daily, worse at night I educated him about this condition I discussed operative and non-operative treatment options The patient would like to proceed with surgery The risks and benefits of operative treatment were discussed with the patient and the patient wishes to proceed with surgery. These risks include, but are not limited to risk of damage to blood vessels, nerves, tendons, infection, recurrence, incomplete relief of preoperative symptoms, persistent pain, possible need for further surgery and the risks associated with regional blocks and anesthesia. The plan is to take the patient to the operating room sometime in the next few weeks for the following procedures: 1. Left carpal tunnel release, under local All of the preoperative paperwork including the consent was reviewed today. All the patient's questions were answered. The patient understands that they will be contacted by our receptionist scheduler soon to schedule this procedure He denies blood thinners, asthma, heart, lung, kidney issues He is a Diabetic, and says this is well-controlled. We do not have an updated HgA1c. They will need an updated HgA1c that is <8.1% in order to proceed with surgery, and they expressed understanding Scribed for Josefa Pal MD by Golden Echols, remote medical coder, on 03/15/24 at 11:20 AM, EST. Coding Level of Care Code New Pt Level 4 (51157) Diagnoses Arthritis of carpometacarpal (CMC) joint of right thumb M18.11 Right carpal tunnel syndrome G56.01 Alcohol use disorder, severe, dependence F10.20 Type 1 diabetes E10.9 CPT Codes Fracture Care - Fracture Billing Code: Fracture Billing Code ([id number])
== END 2024-03-15 11:54 | disposition home or self-care (01) ==
PROVIDERS: PCP Internal Medicine; Visit Provider Orthopaedic Surgery
DX: G56.01 Carpal tunnel syndrome, right upper limb (principal); M18.11 Unilateral primary osteoarthritis of first carpometacarpal joint, right hand; F10.20 Alcohol dependence, uncomplicated; E10.9 Type 1 diabetes mellitus without complications
CPT/HCPCS: 20600; 99204

== ENCOUNTER → 2024-03-15 10:46 | Outpatient (BNVA) | payer BC, SELFPAY | PROVIDERS: PCP Internal Medicine; Visit Provider Orthopaedic Surgery | DX: M18.11 Unilateral primary osteoarthritis of first carpometacarpal joint, right hand (principal); G56.02 Carpal tunnel syndrome, left upper limb; E10.9 Type 1 diabetes mellitus without complications; F10.20 Alcohol dependence, uncomplicated | CPT/HCPCS: 20600; J1010; J2003 ==

== ENCOUNTER 2024-04-12 12:15 | Outpatient (AMB) | payer BC, SELFPAY ==
[2024-04-12 12:20] VITALS: BP 130/80; PULSE 68; O2SAT 98; BMI 28.8
--- NOTE | 2024-04-12 12:20 | A.OFFPC_ITS ---
Vital Signs 04/12/24 12:20 Height 5 ft 9 in Weight 195 lb 6 oz BMI 28.8 BP 130/80 Blood Pressure Location Rt brachial Position Sitting Pulse 68 Pulse Source Pulse Oximeter Pulse Oximetry (%) 98 Intake Visit Reasons: PE Intake Note: pt is here for PE Lease Analyst Required: No Accompanied by: Self / Same As Patient Allergies No Known Allergies [No Known Allergies*] Allergy (Verified 04/12/24 12:20) Tobacco use date assessed: 07/09/23 Dental Screening Dental Screen Date: 07/09/23 HPI HPI Comments History of Present Illness Details 48 y/o male patient who presents to the clinic today for PE. Pt of Dr. Dyer. T1DM: Managed by Endocrinology @ [facility] [place] last seen 07/2022. Pt reports that his BG numbers have been high lately. Pt asking for [place] new [place] [facility] [place] - he does not want to see [facility] [place] Endo anymore. Left Foot and right Elbow Pain: Saw Ortho who referred him to Rheumatology. He was told by Rheum that he did not have RA. Pt asking to be referred back to Ortho for these concerns. [facility] Medical History Joint pain Right hand tendonitis Vitamin D deficiency Type 1 diabetes HTN (hypertension) History of opioid abuse History of kidney stones History of cholelithiasis Dyslipidemia Surgical History History of surgery on wrist History of laparoscopic cholecystectomy Family History Father Coronary artery disease Son Type 1 diabetes Mother No problems noted. 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 1. Little interest or pleasure in doing things: not at all 2. Feeling down, depressed, or hopeless: not at all 3. Trouble falling or staying asleep, or sleeping too much: several days 4. Feeling tired or having little energy: several days 5. Poor appetite or overeating: not at all 6. Feeling bad about yourself - or that you are a failure or have let yourself or your family down: not at all 7. Trouble concentrating on things, such as reading the newspaper or watching television: not at all 8. Moving or speaking so slowly that other people could have noticed. Or the opposite - being so fidgety or restless that you have been moving around a lot more than usual: not at all 9. Thoughts that you would be better off or of hurting yourself in some way: not at all Total score: 2 Depression Screening Interpretation: Negative Depression Screening Done: Yes 62711 - PHQ-9 Billing: Yes Source: Developed by Drs. Nasim Pardo, Apryl Burks, Juan Antonio Daniel and colleagues, with an educational marshall from [employer]. Thrive Questionnaire Date Thrive assessed: 04/12/24 I am a: Patient What is your living situation today?: I have a steady place to live Within the past 12 months, did the food you bought not last and you didn't have the money to get more?: Never true Within the past 12 months, did you worry whether your food would run out before you got money to buy more?: Never true Do you have trouble paying for medicines?: No Do you have trouble getting transportation to medical appointments?: No Do you have trouble paying your heating and electricity bill?: No Do you have trouble taking care of your child, family member or friend?: No Do you have trouble with day-to-day activities such as bathing, preparing meals, shopping, managing finances, etc.?: No Are you currently unemployed and looking for a job?: No Are you interested in more education?: No Please select the resources that you would like help with: None Currently or been in a relationship where the following occur: No concerns reported THRIVE Score: 0 AUDIT C Alcohol Use Questionnaire (AUDIT-C) 1. How often do you have a drink containing alcohol?: Never 3. How often do you have six or more drinks on one occasion?: Never Total Score: 0 Score Reviewed/Action Taken: Yes REYNA-7 AMB Questionnaire REYNA-7 Date REYNA - 7 assessed: 04/12/24 Feeling nervous, anxious, or on edge: 1 = Several days Not being able to stop or control worryin = Not at all Worrying too much about different things: 0 = Not at all Trouble relaxin = Several days Being so restless that it is hard to sit still: 0 = Not at all Becoming easily annoyed or irritable: 1 = Several days Feeling afraid as if something awful might happen: 0 = Not at all Total REYNA-7 score (0-4 normal; 5-9 mild; 10-14 moderate; 15-21 severe): 3 Source: Developed by Drs. Nasim Pardo, Apryl Burks, Juan Antonio Daniel and colleagues, with an educational marshall from [employer]. REYNA-7 Assessment Billing REYNA-7 Assessment Tool: REYNA-7 Assessment 29090 Review of Systems Const All systems reviewed & are unremarkable except as noted in HPI and below Physical exam (Primary Care) Vital Signs: Last Vital Signs Pulse 68 04/12/24 12:20 BP 130/80 04/12/24 12:20 Pulse Ox 98 04/12/24 12:20 BMI result Body Mass Index 28.8 Tobacco/Smoking Status: Tobacco use Status Tobacco use date assessed 07/09/23 04/12/24 12:21 Patient Tobacco Use Status Former Tobacco user 04/12/24 12:21 e-Cigarette/Vaping Use Never Used 04/12/24 12:21 PHQ-9: PHQ-9 Score PHQ-9: Total score 2 04/12/24 12:25 Depression Screening Interpretation: Negative Thrive Assessment: Date of Thrive Assessment Date Thrive assessed 04/12/24 04/12/24 12:21 Currently or been in a relationship where the following occur: No concerns reported Const General: no acute distress Nutritional Appearance: well nourished Orientation/consciousness: patient oriented x3 HENMT Head: Yes normocephalic Ears: external ears normal and TM's normal bilaterally General nose exam: Normal external nose present Face and sinus: Yes sinuses nontender Mouth: moist mucous membranes Throat: Yes uvula midline Eyes Pupils: Equal, round and reactive pupils present EOM: EOMs intact bilaterally Direct Ophthalmoscopy: normal light reflex Neck Neck: Yes full ROM and Yes no lymphadenopathy Resp Effort & Inspection: normal respiratory effort and able to speak in complete sentences Auscultation: clear to auscultation bilaterally, no crackles, no rales, no rhonchi and no wheezes Cardio Heart sounds: S1 normal heart sound present and S2 normal heart sound present GI Inspection: Yes Abdominal panniculus present and Yes obesity Palpation (GI): Soft to palpation, not firm, nontender, no guarding, not rigid and No hepatosplenomegaly present General: Yes no CVA tenderness and Yes deferred Back/Spine/Pelvis Back: no CVA tenderness Neuro General: patient oriented x3, gait normal and moves all extremities Cranial nerves: Yes Equal, round and reactive pupils present Extrem General: Yes full ROM and Yes capillary refill normal Right upper extremity: elbow/forearm Details: normal to inspection and normal ROM; no swelling Left upper extremity: full ROM and elbow/forearm Details: normal to inspection, tenderness and normal ROM; no swelling Psych Speech and movement: Normal speech and movement present Coding Level of Care Code Est Pt Prev Care 40-64y(96393) Diagnoses Encounter for routine adult health examination without abnormal findings Z00.00 Alcohol use disorder, severe, dependence F10.20 Type 1 diabetes mellitus with hyperglycemia E10.65 Diabetes mellitus complication status: with hyperglycemia Essential hypertension I10 Hypertension type: essential hypertension Dyslipidemia E78.5 Additional Codes REYNA-7 Assessment Billing - REYNA-7 Assessment Tool: REYNA-7 Assessment 86147 ([id number]) PHQ-9 - 50764 - PHQ-9 Billing: Yes ([id number]) Time Spent (min) 30 Assessment & Plan Assessment & Plan (1) Encounter for routine adult health examination without abnormal findings: Code(s): Z00.00 - Encounter for general adult medical examination without abnormal findings Plan: WNL (2) Alcohol use disorder, severe, dependence: Code(s): F10.20 - Alcohol dependence, uncomplicated Category: Medical Plan: Patient asking for Medical Marijuana. F/U with PCP on this. (3) Type 1 diabetes: Code(s): E10.9 - Type 1 diabetes mellitus without complications Category: Medical Qualifiers: Diabetes mellitus complication status: with hyperglycemia Qualified Code(s): E10.65 - Type 1 diabetes mellitus with hyperglycemia Plan: New referral [place] [facility] [place]. (4) HTN (hypertension): Code(s): I10 - Essential (primary) hypertension Category: Medical Qualifiers: Hypertension type: essential hypertension Qualified Code(s): I10 - Essential (primary) hypertension Plan: Continue on current regiment. (5) Dyslipidemia: Code(s): E78.5 - Hyperlipidemia, unspecified Category: Medical Plan: Continue on current regiment. Plan Continue on current regiment. Orders: Referrals Endocrinology Referral E10.65 - Type 1 diabetes mellitus with hyperglycemia Orthopedics Referral M25.521 - Pain in right elbow, M79.672 - Pain in left foot
== END 2024-04-12 12:53 | disposition home or self-care (01) ==
LOC: HO.HMCC 12:16
PROVIDERS: PCP Internal Medicine; Visit Provider Nurse Practitioner Family
DX: Z00.00 Encounter for general adult medical examination without abnormal findings (principal); F10.20 Alcohol dependence, uncomplicated; E10.65 Type 1 diabetes mellitus with hyperglycemia; I10 Essential (primary) hypertension; E78.5 Hyperlipidemia, unspecified

== ENCOUNTER → 2024-04-12 12:15 | Outpatient (BNVA) | payer BC, SELFPAY | PROVIDERS: PCP Internal Medicine; Visit Provider Nurse Practitioner Family | DX: Z00.00 Encounter for general adult medical examination without abnormal findings (principal); F10.20 Alcohol dependence, uncomplicated; E10.65 Type 1 diabetes mellitus with hyperglycemia; I10 Essential (primary) hypertension; E78.5 Hyperlipidemia, unspecified | CPT/HCPCS: 96127 ==

== ENCOUNTER 2024-05-08 06:32 | Day surgery (SDC) | payer BC, SELFPAY ==
[2024-05-07 11:40] VITALS: BMI 28.9
[2024-05-08 06:39] VITALS: BP 125/77; PULSE 87; RESP 18; TEMP 37.1; O2SAT 98
--- NOTE | 2024-05-08 08:09 | MHC.SHP ---
Pre-Procedural Eval Section A - 24 Hr Update-Section A only Date of Service: 05/08/24 The patient is an INPATIENT: No Changes since office visit: No Cold of Flu in the past 2 weeks, No New Medical Problems, No Changes in Medication and No Patient answered all questions The patient has been examined within 24 hours of the surgical procedure. The History & Physical has been completed within 30 days and I have reviewed it.: Yes Section B - Complete if H&P > 30 days Chief Complaint: Carpal tunnel syndrome, left upper limb Allergies: Allergies Allergy/AdvReac Type Severity Reaction Status Date / Time No Known Allergies Allergy Verified 04/12/24 12:20 [No Known Allergies*] Plan Diagnosis/Plan: Unchanged I have reviewed the history and physical and performed a pertinent physical examination on my patient. No changes have occurred unless specified. Time Spent With Patient Time: Total time managing care of this patient today ____ minutes.
--- NOTE | 2024-05-08 08:09 | W.PM.OPN ---
Operative Note Operative Note Date of Service: 05/08/24 Narrative: Preop diagnosis: 1. Left Carpal tunnel syndrome Postop diagnosis: same Procedure: 1. Left Carpal tunnel release Surgeon: Josefa Pal MD Street Light Servicer Supervisor: None Anesthesia: local block using 1% lidocaine with epinephrine Findings: Thickened transverse carpal ligament. EBL: Less than 5 mL Specimens: None Complications: None Disposition: Brought to recovery room in stable condition Plan: Follow-up for 10-14 days for wound check and suture removal Indications: The patient is 48 years old, with left carpal tunnel syndrome that has been unresponsive to nonoperative management. The risks and benefits of operative treatment including but not limited to risk of damage to blood vessels, nerves, tendons, infection, persistent pain, persistent symptoms, or possible need for additional surgery were discussed with the patient and the patient wishes to proceed with surgery. Procedure: Once consent was obtained a local block was performed using a combination of 1% lidocaine with epinephrine. The patient was then brought back to the operating suite and placed on the operative table in supine position. The left upper extremity was prepped and draped in a standard surgical fashion. Once assured that we had a good block, a 2.0 cm longitudinal incision was made centered over the carpal tunnel. The incision was made through the skin to the subcutaneous tissues using a #15 blade. Dissection was made down to the level of the transverse carpal ligament with care being taken to protect the palmar cutaneous nerve. Once the transverse carpal ligament was clearly visualized, a longitudinal incision was made in the transverse carpal ligament 1st using a #15 blade, then using tenotomy scissors under direct visualization. Care was taken to look for and protect the motor branch of the median nerve when seen in this area. Once satisfied with our carpal tunnel release the wound was copiously irrigated with normal saline and hemostasis was obtained with a brief period of local pressure. The skin edges were reapproximated with some 5.0 nylon suture material and a sterile dressing was applied. The patient appears to have tolerated the procedure well and with no complications. All digits were well vascularized at the conclusion of the case.
[2024-05-08 09:03] VITALS: BP 132/76; PULSE 82; RESP 16; O2SAT 98
== END 2024-05-08 09:04 | disposition home or self-care (01) ==
PROVIDERS: PCP Internal Medicine; Visit Provider Orthopaedic Surgery
PROC: (CPT 64721; principal; 2024-05-08 07:30)
DX: G56.02 Carpal tunnel syndrome, left upper limb (principal); R20.0 Anesthesia of skin; R20.2 Paresthesia of skin; E10.9 Type 1 diabetes mellitus without complications; I10 Essential (primary) hypertension; E78.5 Hyperlipidemia, unspecified; E55.9 Vitamin D deficiency, unspecified; Z79.4 Long term (current) use of insulin; Z79.85 Long-term (current) use of injectable non-insulin antidiabetic drugs; Z79.899 Other long term (current) drug therapy; F10.11 Alcohol abuse, in remission; F11.11 Opioid abuse, in remission; Z87.442 Personal history of urinary calculi; Z87.891 Personal history of nicotine dependence; Z87.81 Personal history of (healed) traumatic fracture; Z98.890 Other specified postprocedural states
CPT/HCPCS: 64721; J0171; J2003; J2004; J2795

== ENCOUNTER → 2024-05-08 06:32 | Outpatient (BNV) | payer BC, SELFPAY | PROVIDERS: PCP Internal Medicine; Visit Provider Orthopaedic Surgery | DX: G56.02 Carpal tunnel syndrome, left upper limb (principal) | CPT/HCPCS: 64721 ==

== ENCOUNTER 2024-05-24 11:09 | Outpatient (AMB) | payer BC, SELFPAY ==
[2024-05-24 11:19] VITALS: BMI 28.1
--- NOTE | 2024-05-24 11:19 | A.OFFVIS_ITS ---
Vital Signs 05/24/24 11:19 Height 5 ft 9 in Weight 190 lb BMI 28.1 Handedness Left Intake Visit Reasons: PO LT CTR 05/08/24 AR Intake Note: Jacek is a 48 year old left hand dominant male who presents today for a post operative s/p Left Carpal Tunnel Release DOS: 05/08/24 w/ Dr Pal. Patient reports his left hand feels better. Expresses he no longer has numbness and tingling. He expresses some discomfort at base of thumb on palm. Sutures removed and steri strips applied. Allergies No Known Allergies [No Known Allergies*] Allergy (Verified 05/24/24 11:29) HPI HPI PO LT CTR 05/08/24 AR: Details: Patient is a 48-year-old male who presents for postoperative evaluation status post left carpal tunnel release, DOS 05/08/2024. Today, the patient reports that he is feeling very well, and that he is only experiencing some discomfort on the radial side of the incision. Denies any ongoing numbness or tingling in the left hand. No other acute complaints or concerns at this time. [facility] Medical History Joint pain Right hand tendonitis Vitamin D deficiency Type 1 diabetes HTN (hypertension) History of opioid abuse History of kidney stones History of cholelithiasis Dyslipidemia Surgical History History of surgery on wrist History of laparoscopic cholecystectomy Family History Father Coronary artery disease Son Type 1 diabetes Mother No problems noted. 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 Neuro: Normal sensation of the tips of all digits of the left hand at this time Vascular: Cap refill brisk Pain: Patient reports some mild tenderness to palpation just radial to the incision site ROM: Patient is able to make a closed fist and extend all digits of the left hand fully and without difficulty Skin: Well approximated and well healing incision site noted on the volar aspect of the patient's left wrist No evidence of infection General: No ecchymosis, erythema, or evidence of infection. Psych: Appears grossly normal Affect normal Attitude cooperative Assessment & Plan Assessment & Plan (1) Left carpal tunnel syndrome: Code(s): G56.02 - Carpal tunnel syndrome, left upper limb Category: Medical Plan Number carpal tunnel syndrome, right, status post carpal tunnel release DOS 05/08/2024 Patient appears to be recovering well postoperatively Patient is educated about the typical recovery course At this time, patient is informed that I do not feel he will require an acute follow-up with us, as he appears to be recovering very well Patient was amenable to this plan Patient follow-up as needed with any acute concerns Coding Level of Care Code Global (91337) Diagnoses Left carpal tunnel syndrome G56.02
== END 2024-05-24 11:35 | disposition home or self-care (01) ==
PROVIDERS: PCP Internal Medicine
DX: G56.02 Carpal tunnel syndrome, left upper limb (principal)
CPT/HCPCS: 99024

== ENCOUNTER → 2024-05-24 11:09 | Outpatient (BNVA) | payer BC, SELFPAY | PROVIDERS: PCP Internal Medicine ==

== ENCOUNTER 2024-08-12 09:59 | Outpatient (REF) | payer BC, SELFPAY ==
[2024-08-12 12:25] LABS: Creatinine Urine 214.03 mg/dL; Microalbum/Creatinine Ratio Ur 3.2 ug/mg cr (<30)
[2024-08-12 13:43] LABS: Hematocrit 42.5 % (42.0-52.0); Hemoglobin 14.7 g/dl (14.0-18.0); Mean Corpuscular HGB Conc 34.6 g/dl (31.0-36.0); Mean Corpuscular Hemoglobin 31.1 pg (27.0-33.0); Mean Corpuscular Volume 89.9 fL (80.0-98.0); Mean Platelet Volume 10.5 fL (9.4-12.4); Platelet Count 219 X10*3/uL (160-400); Red Blood Count 4.73 X10*6/uL (4.60-5.80); Red Cell Distribution Width 12.6 % (11.0-16.0); White Blood Count 6.3 X10*3/uL (4.8-10.8)
[2024-08-12 13:52] LABS: Estimated Average Glucose 189 mg/dL; Hemoglobin A1c % 8.2 % (<6.0)
[2024-08-12 14:15] LABS: Albumin Level 4.2 g/dL (3.5-5.0); Alkaline Phosphatase 71 U/L (39-117); Anion Gap 10 (12-20); Aspartate Amino Transferase 29 U/L (5-37); Bilirubin Total 0.8 mg/dL (0.0-1.0); Blood Urea Nitrogen 12 mg/dL (9-16); Calcium 9.1 mg/dL (8.4-10.2); Carbon Dioxide 28 mmol/L (22-29); Chloride 107 mmol/L (96-108); Cholesterol 132 mg/dL (<200); Estimated Glomerular Filt Rate > 60; Glucose Fasting 158 mg/dL (60-99); HDL Cholesterol 43 mg/dL (>40); LDL Cholesterol Calculated 75 mg/dL (<100); Potassium 4.2 mmol/L (3.3-5.1); Sodium 141 mmol/L (135-145); Total Protein 6.7 g/dL (6.5-8.0); Triglycerides 71 mg/dL (<150)
[2024-08-12 14:31] LABS: Prostate Specific Antigen 0.47 ng/mL (<0.05-4.0)
[2024-08-12 14:35] LABS: Alanine Aminotransferase 45 U/L (0-40)
[2024-08-20 14:53] LABS: Testosterone, Total 365 ng/dL (250-1100)
== END 2024-08-12 10:00 | disposition home or self-care (01) ==
LOC: HO.HMGCLDS 09:59
PROVIDERS: PCP Internal Medicine; Referring Provider Urology; Visit Provider Internal Medicine
DX: E29.1 Testicular hypofunction (principal); F10.20 Alcohol dependence, uncomplicated; I10 Essential (primary) hypertension; E10.9 Type 1 diabetes mellitus without complications; Z12.5 Encounter for screening for malignant neoplasm of prostate
CPT/HCPCS: 36415; 80053; 80061; 82043; 82570; 83036; 84153; 84403; 85027

== ENCOUNTER 2024-08-25 08:30 | Outpatient (AMB) | payer BC, SELFPAY ==
--- NOTE | 2024-08-25 08:30 | MHC.OFFVIS ---
Intake Visit Reasons: 6m/labs(testo pending) Intake Note: Pt presents to the office as a telehealth visit for a 6 month follow up/labs/testo. Allergies No Known Allergies [No Known Allergies*] Allergy (Verified 08/25/24 08:30) HPI Comments Details: Jacek is a pleasant male.? He is a patient of Dr. Dyer.? He is seen for the following urologic conditions - hypogonadism - lower urinary tract symptoms - erectile dysfunction Six-month review 3 pumps per day Stable T He has been on testosterone since soon after his diabetes diagnosis in 2017 The original diagnostic laboratories are no longer available His symptoms of lack of energy, decreased muscle mass and decreased libido all respond to testosterone therapy It will be expected that he will remain on testosterone for the foreseeable future Good response to low-dose daily tadalafil for erectile issues Refill medications Six-month follow-up lab work May consider alternating 3 or 4 pumps daily Hypogonadism Longstanding - naltrexone use Treated with AndroGel - 3 pumps per day Laboratories - 01/25 T 712, 12/26 T 650 P 0.5, 06/29 T 600 P 0.6 H 43, 01/27 T 700 P 0.6, 07/31 T 865 P 0.5. 01/28 900 P 0.5 H 40, 08/29 365 0.5 42 - 3 pumps per day Comorbidities include Type 1 diabetes with insulin use, dyslipidemia Therapeutic plan - continue to follow with labs every 6 months Erectile dysfunction Low-dose tadalafil daily with good response Lower urinary tract symptoms Weakness of stream Had been placed on Flomax? PFSH Medical History Joint pain Right hand tendonitis Vitamin D deficiency Type 1 diabetes HTN (hypertension) History of opioid abuse History of kidney stones History of cholelithiasis Dyslipidemia Surgical History History of surgery on wrist History of laparoscopic cholecystectomy Family History Father Coronary artery disease Son Type 1 diabetes Mother No problems noted. 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 Cognitive needs: No Hearing needs: No Vision needs: Yes Review of Systems Const All systems reviewed & are unremarkable except as noted in HPI and below Reports no additional complaints Resp Reports no additional complaints GI Reports no additional complaints Reports as per HPI Musc Reports no additional complaints Physical Exam Telemedicine evaluation Appropriate responses Regular breathing rate and rhythm HEENT Head: Yes normal to inspection Ears: hearing grossly normal bilaterally Eyes General: appearance normal, both eyes and all related structures Neck Neck: Yes normal visual inspection Chest Chest palpation & inspection: normal inspection of the chest Resp Effort & Inspection: normal respiratory effort and able to speak in complete sentences Telehealth Telehealth Telehealth Platform: [employer] [place] Location of provider rendering services: practice address Location of patient: address on file Patient Identification confirmed using: Name, : Yes Telehealth method: video Patient verbally consented to treatment: Yes Patient verbally consented to billing insurance company: Yes Patient informed of any privacy concerns related to visit: Yes Minutes spent on Phone/Video with Pt.: 15 Assessment & Plan Assessment & Plan (1) Erectile dysfunction due to diabetes mellitus: Code(s): E11.69 - Type 2 diabetes mellitus with other specified complication; N52.1 - Erectile dysfunction due to diseases classified elsewhere Category: Medical (2) Hypogonadism in male: Code(s): E29.1 - Testicular hypofunction Category: Medical Plan Six-month follow-up lab work Orders: Orders Testosterone, Total 3 Months E29.1 - Testicular hypofunction Complete Blood Count no Diff 3 Months E29.1 - Testicular hypofunction Prostate Specific Antigen 3 Months E29.1 - Testicular hypofunction Medications: Refilled tadalafil dialy 5 mg PO DAILY 90 days 90 tabs 1RF Low T E29.1 - Testicular hypofunction testosterone apply 3 pumps total each day rub in till dry 3 pumps transdermal DAILY 28 days 150 grams 5RF E29.1 - Testicular hypofunction Patient Instructions: This note is constructed using voice recognition software. While every effort has been made to ensure accuracy logistics coordinator errors may have been included. Imaging studies, laboratory and physical exam results were discussed and reviewed in detail. No major barriers to patient understanding were identified. An opportunity to ask questions regarding the treatment plan was provided. All questions were answered. The patient expressed understanding and agreement with the above treatment plan. The patient is aware they should contact our office by phone for worsening of their current condition or the appearance of new urologic symptoms. Compliance is encouraged with any medications and followup testing that is ordered. It is a privilege to participate in the urologic care of your patient. If you have any questions or concerns regarding treatment for the above conditions, or other urologic issues, please do not hesitate to contact me. The office telephone contact is [phone]. Sincerely, Dr Hilton Mattson MD, [facility] - Urology Compassionate Specialist Care for the Genitourinary System Coding Level of Care Code Tele Est Pt Level 3 (38694) Complex EM visit Add On G2211 Diagnoses Erectile dysfunction due to diabetes mellitus E11.69; N52.1 Hypogonadism in male E29.1
== END 2024-08-25 09:06 | disposition home or self-care (01) ==
LOC: HO.HUSH 08:30
PROVIDERS: PCP Internal Medicine; Visit Provider Urology
DX: E11.69 Type 2 diabetes mellitus with other specified complication (principal); N52.1 Erectile dysfunction due to diseases classified elsewhere; E29.1 Testicular hypofunction
CPT/HCPCS: 99213

== ENCOUNTER 2024-10-27 11:01 | Outpatient (AMB) | payer BC, SELFPAY ==
--- NOTE | 2024-10-27 11:13 | MHC.OFFWIV ---
Intake Vital Signs 10/27/24 11:40 Weight 209 lb BP 110/70 Blood Pressure Location Rt brachial Position Sitting Pulse 78 Pulse Source Pulse Oximeter Temp 98.4 F Temp Source Oral Pulse Oximetry (%) 97 Oxygen Delivery Method Room Air Intake Visit Reasons: PE Pneumonia again? Intake Note: Patient here for cough, SOB and chest pressure that started about 2-3 days ago. Patient Tobacco Use Status: Former Tobacco user Allergies No Known Allergies [No Known Allergies*] Allergy (Verified 10/27/24 11:41) Do you need a note to return to daycare/school/sports/work: No HPI HPI Comments History of Present Illness Details 49 y/o Male patient who presents to the walk in clinic with c/o cough, SOB and chest pressure that started about 2-3 days ago. Reports SOB, wheezing and Chest pain from coughing. [facility] Medical History (Updated 10/27/24 @ 12:05 by Sunni Hong NP) Cough in adult Joint pain Right hand tendonitis Vitamin D deficiency Type 1 diabetes HTN (hypertension) History of opioid abuse History of kidney stones History of cholelithiasis Dyslipidemia Surgical History History of surgery on wrist History of laparoscopic cholecystectomy Family History Father Coronary artery disease Son Type 1 diabetes Mother No problems noted. 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 Cognitive needs: No Hearing needs: No Vision needs: Yes Review of Systems Const All systems reviewed & are unremarkable except as noted in HPI and below Physical Exam Vital Signs: Last Vital Signs Temp 98.4 F 10/27/24 11:40 Pulse 78 10/27/24 11:40 BP 110/70 10/27/24 11:40 Pulse Ox 97 10/27/24 11:40 Oxygen Delivery Method Room Air 10/27/24 11:40 Const General: no acute distress Nutritional Appearance: overweight Orientation/consciousness: patient oriented x3 Resp Effort & Inspection: normal respiratory effort and able to speak in complete sentences Auscultation: clear to auscultation bilaterally, no crackles, no rales, no rhonchi and no wheezes Cardio Rhythm: regular rhythm Heart sounds: S1 normal heart sound present and S2 normal heart sound present Neuro General: patient oriented x3 Assessment & Plan Assessment & Plan (1) Cough in adult: Code(s): R05.9 - Cough, unspecified Plan: Ordered STAT Chest Xray. RESULTS: IMPRESSION: No acute airspace disease. No Pneumonia. Patient was informed of the Final results OTC cough remedies. Orders: Orders XR chest 2V Today R05.9 - Cough, unspecified Medications: New dextromethorphan polistirex ER (Delsym 12 hour) 10 mL PO Q12H 89 mL 0RF cough R05.9 - Cough, unspecified benzonatate 200 mg (2 x 100 mg) PO BID 60 caps 0RF R05.9 - Cough, unspecified Coding Level of Care Code Est Pt Level 4 (32668) Diagnoses Cough in adult R05.9 Time Spent (min) 20
[2024-10-27 11:40] VITALS: BP 110/70; PULSE 78; TEMP 36.9; O2SAT 97
== END 2024-10-27 12:12 | disposition home or self-care (01) ==
PROVIDERS: PCP Internal Medicine; Visit Provider Nurse Practitioner Family
DX: R05.9 Cough, unspecified (principal)

== ENCOUNTER 2024-10-27 11:01 | Outpatient (REF) | payer BC, SELFPAY ==
--- NOTE | ~2024-10-27 | XR_ITS ---
EXAMINATION: XR CHEST CLINICAL INFORMATION: R05.9 - Cough, unspecified COMPARISON: None available. TECHNIQUE: 2 views of the chest were obtained. FINDINGS: No consolidation, pleural fissure pneumothorax. No hyperinflation. Cardiomediastinal silhouette size is normal. Multilevel thoracic and upper lumbar stenosis. Aspect clips right upper quadrant abdomen and likely cholecystectomy procedure. XR/XR chest 2V IMPRESSION: No acute airspace disease. Electronically signed by: Los Mitchell MD 10/27/2024 12:22 PM EDT
== END 2024-10-27 11:02 | disposition home or self-care (01) ==
LOC: HO.HMGCX 11:01
PROVIDERS: PCP Internal Medicine; Visit Provider Nurse Practitioner Family
DX: R05.9 Cough, unspecified (principal)
CPT/HCPCS: 71046

== ENCOUNTER → 2024-10-27 12:09 | Outpatient (BNV) | payer BC, SELFPAY | PROVIDERS: PCP Internal Medicine; Visit Provider Radiology Diagnostic Radiology | DX: R05.9 Cough, unspecified (principal) | CPT/HCPCS: 71046 ==

== ENCOUNTER 2025-01-04 07:19 | Outpatient (REF) | payer BC, SELFPAY ==
[2025-01-04 10:24] LABS: Hematocrit 42.1 % (42.0-52.0); Hemoglobin 13.9 g/dl (14.0-18.0); Mean Corpuscular HGB Conc 33.0 g/dl (31.0-36.0); Mean Corpuscular Hemoglobin 30.4 pg (27.0-33.0); Mean Corpuscular Volume 92.1 fL (80.0-98.0); NRBC Abs Auto 0.000 X10*3/uL (0.0-0.012); NRBC Pct Auto 0.0 /100WBC (0.0-0.2); Platelet Count 235 X10*3/uL (160-400); Red Blood Count 4.57 X10*6/uL (4.60-5.80); White Blood Count 6.0 X10*3/uL (4.8-10.8)
[2025-01-04 10:46] LABS: Prostate Specific Antigen 0.68 ng/mL (<0.05-4.0)
== END 2025-01-04 07:20 | disposition home or self-care (01) ==
LOC: HO.HMGCLDS 07:19
PROVIDERS: PCP Internal Medicine; Visit Provider Urology
DX: E29.1 Testicular hypofunction (principal)
CPT/HCPCS: 36415; 84153; 84403; 85027

== ENCOUNTER 2025-02-27 08:41 | Outpatient (AMB) | payer BC, SELFPAY ==
--- NOTE | 2025-02-27 08:41 | MHC.OFFVIS ---
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 He is a patient of Dr. Dyer.? He is seen for the following urologic conditions - hypogonadism - lower urinary tract symptoms - erectile dysfunction Six-month review 3 pumps per day T has stabilized in the 600 range He has been mindful of applying gel and massaging it into tissue until dry He has been on testosterone since soon after his diabetes diagnosis in 2016 The original diagnostic laboratories are no longer available His symptoms of lack of energy, decreased muscle mass and decreased libido all respond to testosterone therapy It will be expected that he will remain on testosterone for the foreseeable future Good response to low-dose daily tadalafil for erectile issues Prescription provided Encouraged to move to weight based exercise On insulin pump 50-60 units per 24 hour Hypogonadism Longstanding - naltrexone use Treated with AndroGel - 3 pumps per day Laboratories - 01/25 T 712, 12/26 T 650 P 0.5, 06/29 T 600 P 0.6 H 43, 01/27 T 700 P 0.6, 07/31 T 865 P 0.5. 01/28 900 P 0.5 H 40, 08/29 365 0.5 42 - 3 pumps per day, 03/01 670 Comorbidities include Type 1 diabetes with insulin use, dyslipidemia Therapeutic plan - continue to follow with labs every 6 months Erectile dysfunction Low-dose tadalafil daily with good response Lower urinary tract symptoms Weakness of stream Had been placed on Flomax? [facility] Medical History (Updated 10/27/24 @ 12:05 by Sunni Hong NP) Cough in adult Joint pain Right hand tendonitis Vitamin D deficiency Type 1 diabetes HTN (hypertension) History of opioid abuse History of kidney stones History of cholelithiasis Dyslipidemia Surgical History History of surgery on wrist History of laparoscopic cholecystectomy Family History Father Coronary artery disease Son Type 1 diabetes Mother No problems noted. 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 Cognitive needs: No Hearing needs: No Vision needs: Yes Review of Systems Const Denies chills and Denies fever(s) Card Reports no additional complaints and Denies syncope Resp Denies cough GI Denies abdominal pain and Denies heartburn Reports as per HPI and Denies change in libido Neuro Denies syncope Psych Denies change in libido Endo Denies change in libido Physical Exam Const General: cooperative, healthy appearing, comfortable and no acute distress Orientation/consciousness: patient oriented x3 HEENT Face and sinus: Yes normal facial exam Mouth: moist mucous membranes Neck Neck: Yes normal visual inspection, Yes full ROM and Yes trachea midline Chest Chest palpation & inspection: normal inspection of the chest Resp Effort & Inspection: normal respiratory effort, able to speak in complete sentences and no respiratory distress GI Inspection: Yes normal to inspection Back/Spine/Pelvis Cervical Spine: normal cervical lordosis Thoracic/Lumbar Spine: thoracic and lumbar spine normal to inspection Skin General skin exam: no rashes or lesions noted Neuro General: patient oriented x3, gait normal, tone normal and moves all extremities Extrem General: Yes normal to inspection and Yes capillary refill normal Assessment & Plan Assessment & Plan (1) Erectile dysfunction due to diabetes mellitus: Code(s): E11.69 - Type 2 diabetes mellitus with other specified complication; N52.1 - Erectile dysfunction due to diseases classified elsewhere Category: Medical (2) Hypogonadism in male: Code(s): E29.1 - Testicular hypofunction Category: Medical Plan Six-month follow-up lab work Orders: Orders Prostate Specific Antigen 5 Months E29.1 - Testicular hypofunction Testosterone, Total 5 Months E29.1 - Testicular hypofunction Hematocrit 5 Months E29.1 - Testicular hypofunction Medications: Refilled testosterone apply 3 pumps total each day rub in till dry 3 pumps transdermal DAILY 150 grams 5RF 28 days E29.1 - Testicular hypofunction tadalafil dialy 5 mg PO DAILY 90 tabs 1RF Low T 90 days E29.1 - Testicular hypofunction Patient Instructions: This note is constructed using voice recognition software. While every effort has been made to ensure accuracy software development test engineer errors may have been included. Imaging studies, laboratory and physical exam results were discussed and reviewed in detail. No major barriers to patient understanding were identified. An opportunity to ask questions regarding the treatment plan was provided. All questions were answered. The patient expressed understanding and agreement with the above treatment plan. The patient is aware they should contact our office by phone for worsening of their current condition or the appearance of new urologic symptoms. Compliance is encouraged with any medications and followup testing that is ordered. It is a privilege to participate in the urologic care of your patient. If you have any questions or concerns regarding treatment for the above conditions, or other urologic issues, please do not hesitate to contact me. The office telephone contact is [phone]. Sincerely, Dr Hilton Mattson MD, [facility] - Urology Compassionate Specialist Care for the Genitourinary System Coding Level of Care Code Est Pt Level 3 (32867) Complex EM visit Add On G2211 Diagnoses Erectile dysfunction due to diabetes mellitus E11.69; N52.1 Hypogonadism in male E29.1
== END 2025-02-27 09:09 | disposition home or self-care (01) ==
LOC: HO.HUSH 08:41
PROVIDERS: PCP Internal Medicine; Visit Provider Urology
DX: E11.69 Type 2 diabetes mellitus with other specified complication (principal); N52.1 Erectile dysfunction due to diseases classified elsewhere; E29.1 Testicular hypofunction
CPT/HCPCS: 99213

== ENCOUNTER 2025-04-11 13:13 | Outpatient (REF) | payer BC, SELFPAY ==
[2025-04-11 16:03] LABS: MANUAL DIFF FLAG NO
[2025-04-11 16:11] LABS: Hematocrit 40.3 % (42.0-52.0); Hemoglobin 13.2 g/dl (14.0-18.0); Imm Gran Abs Auto 0.03 X10*3/uL (0.00-0.03); Imm Gran Pct Auto 0.4 % (0.0-0.4); Lymphocytes Absolute Auto 1.8 X10*3/uL (1.2-4.9); Mean Corpuscular HGB Conc 32.8 g/dl (31.0-36.0); Mean Corpuscular Hemoglobin 29.5 pg (27.0-33.0); Mean Corpuscular Volume 90.2 fL (80.0-98.0); NRBC Abs Auto 0.000 X10*3/uL (0.0-0.012); NRBC Pct Auto 0.0 /100WBC (0.0-0.2); Platelet Count 217 X10*3/uL (160-400); Red Blood Count 4.47 X10*6/uL (4.60-5.80); White Blood Count 6.8 X10*3/uL (4.8-10.8)
[2025-04-11 16:34] LABS: Alanine Aminotransferase 35 U/L (0-40); Anion Gap 12 (12-20); Aspartate Amino Transferase 27 U/L (5-37); Blood Urea Nitrogen 13 mg/dL (9-16); Calcium 9.2 mg/dL (8.4-10.2); Carbon Dioxide 31 mmol/L (22-29); Chloride 104 mmol/L (96-108); Cholesterol 133 mg/dL (<200); Estimated Glomerular Filt Rate > 60; HDL Cholesterol 47 mg/dL (>40); Iron 126 mcg/dL (45-160); Percent Iron Saturation 43 % (15-50); Potassium 4.5 mmol/L (3.3-5.1); Sodium 142 mmol/L (135-145); Total Iron Binding Capacity 292 mcg/dL (228-428); Triglycerides 69 mg/dL (<150); Unsaturated Iron Binding 166 ug/dL
[2025-04-11 16:37] LABS: Microalbum/Creatinine Ratio Ur 4.6 ug/mg cr (<30)
[2025-04-11 16:39] LABS: Ferritin 174 ng/mL (20-250)
== END 2025-04-11 13:14 | disposition home or self-care (01) ==
LOC: HO.HMGCLDS 13:13
PROVIDERS: PCP Internal Medicine; Visit Provider Internal Medicine
DX: F10.20 Alcohol dependence, uncomplicated (principal); I10 Essential (primary) hypertension; E10.65 Type 1 diabetes mellitus with hyperglycemia; E78.5 Hyperlipidemia, unspecified
CPT/HCPCS: 36415; 80048; 80061; 82043; 82570; 82728; 83036; 83540; 84450; 84460; 85025

== ENCOUNTER 2025-05-02 15:40 | Outpatient (AMB) | payer BC, SELFPAY ==
[2025-05-02 15:50] VITALS: BP 114/66; PULSE 73; RESP 16; TEMP 36.7; O2SAT 95; BMI 29.8
--- NOTE | 2025-05-02 15:50 | A.OFFPC_ITS ---
Vital Signs 05/02/25 15:50 Height 5 ft 9 in Weight 202 lb BMI 29.8 BP 114/66 Blood Pressure Location Lt brachial Position Sitting Respiration 16 Pulse 73 Pulse Source Pulse Oximeter Temp 98.0 F Temp Source Oral Pulse Oximetry (%) 95 Oxygen Delivery Method Room Air Intake Visit Reasons: PE Intake Note: Pt is here today for his PE Private Equity Associate Required: No Allergies No Known Allergies (No Known Allergies*) Allergy (Verified 05/02/25 16:06) Medication List - Last Reconciled 05/02/25 by Kyara Dyer MD albuterol sulfate 90 mcg/actuation 2 puffs inhalation Q6H PRN atorvastatin 20 mg PO DAILY blood sugar diagnostic ([employer] Verio test strips) Three times a day blood-glucose meter ([employer] Verio Meter) 3x/day blood-glucose sensor ([employer] G6 Sensor device) USE DIRECTED TO TEST BLOOD GLUCOSE blood-glucose transmitter ([employer] G6 Transmitter device) As directed blood-glucose,photo mask inspector,cont (Dexcom G6 Sea Kayaking Guide) check blood sugar TID ac buprenorphine-naloxone 8-2 mg 20 mg sublingual DAILY glucagon 3 mg/actuation (Baqsimi) 3 mg intranasal ONCE insulin lispro (Humalog U-100 Insulin) 7 units (0.07 mL) subcut TID insulin pump cart,auto,BT,G6/7 (Omnipod 5 G6-G7 Pods (Gen 5) subcutaneous cartridge) As directed lisinopril 20 mg PO DAILY pen needle, diabetic (Comfort EZ Pen [place]) 4x daily tadalafil 5 mg PO DAILY 90 days testosterone 3 pumps transdermal DAILY 28 days Tobacco use date assessed: 05/02/25 Dental Screening Dental Screen Date: 05/02/25 Did you have a dental visit in the last 12 months?: Yes Did you have a dental problem in the last 6 months where you did not have access to dental care?: No Was dental information given to patient?: Patient has dentist HPI PE HPI Details 49 year-old male with past medical histo ry of type 1 diabetes mellitus currently followed by [facility] endocrine clinic, Hypogonadism currently being followed by Urology, , has hypertension and hyperlipidemia, here today for his physical exam. He goes to [facility] for his diabetes eye exam and routine eye screening, last seen 04/13/2025 with no retinopathy seen. He is overdue for his colon cancer screening, let Cologuard test when ordered last visit. New order will be sent. Declined all offered vaccines today. Has been complaining of intermittent episodes of palpitations, accompanied by sensation of pressure on chest, but denies any pain, no palpitations or shortness of breath. This would last only several sec and resolved spontaneously. Currently asymptomatic Has been having intermittent episodes pain and stiffness over the base of his right thumb, which has been present now for the last several weeks, requests referral back to Dr. Pal at [facility] orthopedics. Has been applying [id number] arthritis screening when taking NSAIDs with no relief. [facility] Medical History (Updated 05/02/25 @ 16:22 by Kyara Dyer MD) Paroxysmal sinus tachycardia Cough in adult Joint pain Right hand tendonitis Vitamin D deficiency Type 1 diabetes HTN (hypertension) History of opioid abuse History of kidney stones History of cholelithiasis Dyslipidemia Surgical History History of surgery on wrist History of laparoscopic cholecystectomy Family History Father Coronary artery disease Son Type 1 diabetes Mother No problems noted. 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 1. Little interest or pleasure in doing things: not at all 2. Feeling down, depressed, or hopeless: not at all 3. Trouble falling or staying asleep, or sleeping too much: not at all 4. Feeling tired or having little energy: several days 5. Poor appetite or overeating: not at all 6. Feeling bad about yourself - or that you are a failure or have let yourself or your family down: not at all 7. Trouble concentrating on things, such as reading the newspaper or watching television: several days 8. Moving or speaking so slowly that other people could have noticed. Or the opposite - being so fidgety or restless that you have been moving around a lot more than usual: not at all 9. Thoughts that you would be better off or of hurting yourself in some way: not at all Total score: 2 Depression Screening Interpretation: Negative Depression Screening Done: Yes 74830 - PHQ-9 Billing: Yes Source: Developed by Drs. Nasim Pardo, Apryl Burks, Juan Antonio Daniel and colleagues, with an educational marshall from [employer]. Thrive Questionnaire Date Thrive assessed: 05/01/25 I am a: Patient What is your living situation today?: I have a steady place to live Within the past 12 months, did the food you bought not last and you didn't have the money to get more?: Never true Within the past 12 months, did you worry whether your food would run out before you got money to buy more?: Never true Do you have trouble paying for medicines?: No Do you have trouble getting transportation to medical appointments?: No Do you have trouble paying your heating and electricity bill?: No Do you have trouble taking care of your child, family member or friend?: No Do you have trouble with day-to-day activities such as bathing, preparing meals, shopping, managing finances, etc.?: No Are you currently unemployed and looking for a job?: No Are you interested in more education?: No Please select the resources that you would like help with: None Currently or been in a relationship where the following occur: No concerns reported THRIVE Score: 0 AUDIT C Alcohol Use Questionnaire (AUDIT-C) 1. How often do you have a drink containing alcohol?: Never Total Score: 0 Score Reviewed/Action Taken: Yes REYNA-7 AMB Questionnaire REYNA-7 Date REYNA - 7 assessed: 05/02/25 Feeling nervous, anxious, or on edge: 1 = Several days Not being able to stop or control worryin = Several days Worrying too much about different things: 0 = Not at all Trouble relaxin = Several days Being so restless that it is hard to sit still: 0 = Not at all Becoming easily annoyed or irritable: 1 = Several days Feeling afraid as if something awful might happen: 0 = Not at all Total REYNA-7 score (0-4 normal; 5-9 mild; 10-14 moderate; 15-21 severe): 4 Source: Developed by Drs. Nasim Pardo, Apryl Burks, Juan Antonio Daniel and colleagues, with an educational marshall from [employer]. REYNA-7 Assessment Billing REYNA-7 Assessment Tool: REYNA-7 Assessment 85713 Review of Systems Const Denies chills, Denies difficulty sleeping, Denies fatigue, Denies fever(s), Denies malaise and Denies weakness Eyes Reports no additional complaints ENT Reports no additional complaints Card Reports as per HPI, Denies syncope and Denies dyspnea Resp Denies cough and Denies dyspnea GI Denies abdominal pain and Denies heartburn Reports no additional complaints Musc Reports no additional complaints Skin/Breast Denies lesions and Denies rash Neuro Denies Abnormal speech present, Denies syncope, Denies Sensory deficit (Neuro) and Denies weakness Psych Reports no additional complaints Endo Denies fatigue Randall/Lymph Reports no additional complaints Aller/Immun Reports no additional complaints Physical exam (Primary Care) Vital Signs: Last Vital Signs Temp 98.0 F 05/02/25 15:50 Pulse 73 05/02/25 15:50 Resp 16 05/02/25 15:50 BP 114/66 05/02/25 15:50 Pulse Ox 95 05/02/25 15:50 Oxygen Delivery Method Room Air 05/02/25 15:50 BMI result Body Mass Index 29.8 Tobacco/Smoking Status: Tobacco use Status Tobacco use date assessed 05/02/25 05/02/25 15:52 Patient Tobacco Use Status Former Tobacco user 05/02/25 15:52 e-Cigarette/Vaping Use Never Used 05/02/25 15:52 PHQ-9: PHQ-9 Score PHQ-9: Total score 2 05/02/25 16:08 Depression Screening Interpretation: Negative Thrive Assessment: Date of Thrive Assessment Date Thrive assessed 05/01/25 05/02/25 15:52 Currently or been in a relationship where the following occur: No concerns reported Const Other: Alert and oriented x3, no acute cardiorespiratory distress noted ambulatory with normal gait HENMT Head: Yes normocephalic Ears: external ears normal and TM's normal bilaterally General nose exam: Normal external nose present Face and sinus: Yes face symmetric Mouth: moist mucous membranes Eyes General: appearance normal, both eyes and all related structures Pupils: Equal, round and reactive pupils present EOM: EOMs intact bilaterally Direct Ophthalmoscopy: normal light reflex Neck Neck: Yes full ROM and Yes no lymphadenopathy Thyroid: Thyroid normal Resp Effort & Inspection: normal respiratory effort and able to speak in complete sentences Auscultation: clear to auscultation bilaterally, no crackles, no rales, no rhonchi and no wheezes Cardio Rate: regular rate Rhythm: regular rhythm Heart sounds: S1 normal heart sound present and S2 normal heart sound present GI Inspection: Yes Abdominal panniculus present and Yes obesity Palpation (GI): Soft to palpation, nontender, no guarding and not rigid General: Yes no CVA tenderness and Yes deferred Back/Spine/Pelvis Back: no CVA tenderness Skin General skin exam: no rashes or lesions noted Neuro General: gait normal and moves all extremities Cranial nerves: Yes Equal, round and reactive pupils present Cognition (Neuro): normal cognition Speech: No Abnormal speech present Gait exam (Neuro): Normal gait present Motor exam (neuro): 5/5 motor strength present throughout Sensory Exam: No Sensory deficit (Neuro) Extrem Other: Decreased range of motion with in his on palpation of the right 1st MCP joint General: Yes full ROM and Yes capillary refill normal Psych Appearance: grossly normal Mental Status: mental status grossly normal Speech and movement: Normal speech and movement present Attitude: cooperative Results Reviewed Results Reviewed: Laboratory Tests 08/26/20 09/03/21 03/31/22 15:02 07:15 10:56 Hgb A1c (Clinic) 7.4 H Hemoglobin A1c % Calcium Total PSA 0.54 Total Testosterone 557 Urine Creatinine Microalb/Creat Ratio 6.1 Urine Microalbumin 04/11/25 04/11/25 13:17 13:25 Hgb A1c (Clinic) Hemoglobin A1c % 6.7 H Calcium 9.2 Total PSA Total Testosterone Urine Creatinine 279.51 Microalb/Creat Ratio 4.6 Urine Microalbumin 13.0 Name: Jacek Marin Age/Sex: 49/M : 1975 Unit#: [id number] Attend Dr: Kyara Dyer MD Re04/11/25 Status: DEP REF Location: [facility] Dis ch: SPEC : [id number] MOON: 04/11/25 STATUS: COMP REQ : [id number] RECD: 04/11/[address]: Kyara Dyer MD COMP: 04/11/25 ENTERED: 04/11/[address] [facility] [address]: ORDERED: Met Prof Fast, IRON PROF, Ferritin, AST, ALT, Lipid Panel Test Result Flag Reference Sodium 142 135-145 mmol/L Potassium 4.5 3.3-5.1 mmol/L CL 104 96-108 mmol/L CO2 31 H 22-29 mmol/L Gap 12 12-20 BUN 13 9-16 mg/dL Creat 0.65 0.5-1.4 mg/dL eGFR > 60 Chronic Kidney Disease: Estimated GFR < 60 mL/min/1.73m2 Severe Kidney Disease: Estimated GFR < 15 mL/min/1.73m2 FBS 135 H 60-99 mg/dL A fasting glucose of 126 mg/dl or greater on more than one occasion is considered diagnostic of diabetes. CA 9.2 8.4-10.2 mg/dL Iron 126 45-160 mcg/dL TIBC 292 228-428 mcg/dL Saturation 43 15-50 % UIBC 166 ug/dL Ferritin 174 20-250 ng/mL AST (GOT) 27 5-37 U/L ALT (GPT) 35 0-40 U/L Triglyceride 69 <150 mg/dL Desirable Triglyceride: less than 150 mg/dL Borderline High Triglyceride 150-199 mg/dL High Triglyceride: 200-499 mg/dL Very High Triglyceride: greater than or equal to 5OO mg/dL Cholesterol 133 <200 mg/dL Desirable Cholesterol: less than 200 mg/dL Borderline High Cholesterol: 200-239 mg/dL High Cholesterol: greater than 239 mg/dL LDL Calculated 73 <100 mg/dL Desirable LDL: less than 100 mg/dL Near Optimal/Above Optimal LDL: 110-129 mg/dL Borderline High LDL: 130-159 mg/dL High LDL: 160-189 mg/dL Very High LDL: greater than or equal to 190 mg/dL HDL 47 >40 mg/dL Desirable HDL: greater than 40 mg/dL Note: This HDL assay may give artificially low results in patients with liver disease. Name: Jacek Marin Age/Sex: 49/M : 1975 Unit#: [id number] Attend Dr: Kyara Dyer MD Re04/11/25 Status: DEP [facility] Disch: SPEC : [id number] MOON: 04/11/25 STATUS: COMP REQ : [id number] RECD: 04/11/[address]: Kyara Dyer MD COMP: 04/11/25 ENTERED: 04/11/[address] [facility] [address]: ORDERED: CBC Auto Diff Test Result Flag Reference WBC 6.8 4.8-10.8 X10*3/uL RBC 4.47 L 4.60-5.80 X10*6/uL HGB 13.2 L 14.0-18.0 g/dl HCT 40.3 L 42.0-52.0 % MCV 90.2 80.0-98.0 fL MCH 29.5 27.0-33.0 pg MCHC 32.8 31.0-36.0 g/dl RDW 13.2 11.0-16.0 % PLT 217 160-400 X10*3/uL MPV 10.7 9.4-12.4 fL Neut Pct Auto 63.4 45-73 % ImGran Pct Auto 0.4 0.0-0.4 % Lymp Pct Auto 26.0 20-40 % Graves Pct Auto 6.9 2-11 % Eos Pct Auto 2.9 0-4 % Baso Pct Auto 0.4 0-2 % NRBC Pct Auto 0.0 0.0-0.2 /100WBC ANC Neut Abs # 4.3 2.0-8.3 x10*3/uL ImGran Abs Auto 0.03 0.00-0.03 X10*3/uL Lymph Abs Auto 1.8 1.2-4.9 X10*3/uL Graves Abs Auto 0.5 0.1-1.2 X10*3/uL Eos Abs Auto 0.2 0.0-0.4 X10*3/uL Baso Abs Auto 0.0 0.0-0.2 X10*3/uL NRBC Abs Auto 0.000 0.0-0.012 X10*3/uL Coding Level of Care Code Est Pt Prev Care 40-64y(26008) Diagnoses Annual visit for general adult medical examination with abnormal findings Z00.01 Paroxysmal sinus tachycardia I47.19 Arthritis of carpometacarpal (CMC) joint of right thumb M18.11 Additional Codes REYNA-7 Assessment Billing - REYNA-7 Assessment Tool: REYNA-7 Assessment 08342 ([id number]) PHQ-9 - 49295 - PHQ-9 Billing: Yes ([id number]) Assessment & Plan Assessment & Plan (1) Annual visit for general adult medical examination with abnormal findings: Code(s): Z00.01 - Encounter for general adult medical examination with abnormal findings Plan: Recent fasting lab results reviewed with patient. Continue regular dental visit every 6 months and regular eye exams, yearly, currently up-to-date. Take adequate calcium in diet and vitamin-D 3 at 2000 IU per cap once a day, in addition to weight-bearing exercises to help maintain good muscle tone and weight control. Overdue for his colon cancer screening, Cologuard test ordered again. Flu vaccine, pneumococcal vaccination and Tdap offered today but patient declined (2) Paroxysmal sinus tachycardia: Code(s): I47.19 - Other supraventricular tachycardia Category: Medical Plan: Reviewed recent fasting labs which showed mild anemia with normal iron levels, diabetes mellitus, lipids well controlled. Referred to cardiology for further evaluation management. Patient at present is asymptomatic (3) Arthritis of carpometacarpal (CMC) joint of right thumb: Code(s): M18.11 - Unilateral primary osteoarthritis of first carpometacarpal joint, right hand Category: Medical Plan: Advised to try massaging Advil ointment to affected joint. Referral to Dr. Pal at [facility] orthopedics Orders: Referrals Cologuard Test Z12.11 - Encounter for screening for malignant neoplasm of colon, Z12.12 - Encounter for screening for malignant neoplasm of rectum Cardiology Referral I47.19 - Other supraventricular tachycardia Orthopedics Referral M18.11 - Unilateral primary osteoarthritis of first carpometacarpal joint, right hand
== END 2025-05-02 16:56 | disposition home or self-care (01) ==
LOC: HO.HMCC 15:41
PROVIDERS: PCP Internal Medicine; Visit Provider Internal Medicine
DX: Z00.01 Encounter for general adult medical examination with abnormal findings (principal); I47.19 Other supraventricular tachycardia; M18.11 Unilateral primary osteoarthritis of first carpometacarpal joint, right hand

== ENCOUNTER → 2025-05-02 15:40 | Outpatient (BNVA) | payer BC, SELFPAY | PROVIDERS: PCP Internal Medicine; Visit Provider Internal Medicine | DX: Z00.01 Encounter for general adult medical examination with abnormal findings (principal); E10.9 Type 1 diabetes mellitus without complications; I10 Essential (primary) hypertension; E78.5 Hyperlipidemia, unspecified; R00.2 Palpitations; M18.11 Unilateral primary osteoarthritis of first carpometacarpal joint, right hand; I47.19 Other supraventricular tachycardia | CPT/HCPCS: 96127 ==